=== PATIENT | female | born 1955 | race Caucasian/White ===

== ENCOUNTER → 2016-12-16 | Outpatient (CLI) | payer OTHER ==
--- NOTE | 2016-12-17 08:13 | WWHP ---
DATE OF SERVICE: 12/16/2016 CHIEF COMPLAINT The patient is here for her routine gynecologic exam and mammogram. HPI This is a 61-year-old G4, P3-0-1-3 with an LMP of 1987 who is status post RYDER BSO for benign reasons. The patient is without gynecologic complaints. PAST MEDICAL HISTORY Chronic hypertension, arthritis, osteoporosis and restless leg syndrome. The osteoporosis is managed by Dr. Caldwell. MEDICATIONS 1. Lisinopril 5 mg daily. 2. Trazodone 100 mg at bedtime. 3. Celebrex 1 daily. 4. Gabapentin 500 mg at bedtime. 5. Calcium with magnesium 1 daily. 6. Famotidine 40 mg daily. 7. Pantoprazole 20 mg daily. 8. Meclizine 25 mg b.i.d. 9. Travatan drops 1 drop nightly. 10. Restasis b.i.d. 11. Cymbalta generic 60 mg once daily and 30 mg once daily. ALLERGIES Allergies to PERCODAN. PAST SURGICAL HISTORY: Tonsillectomy, appendectomy, RYDER in 1987 and BSO in 1988, multiple laparoscopies and laparotomies for ovarian cystectomies in the past, colonoscopy with upper endoscopy in 2012. She also had another colonoscopy in 2014, a laparoscopic hiatal hernia surgery 2012, shoulder surgery 2015. PAST AUDIOMETRIST HISTORY: She is status post RYDER and later BSO for endometriosis. She has no history of STDs. SOCIAL HISTORY: She quit smoking in the and has 0 to 2 alcoholic drinks per week. She denies drug use. She is and is now engaged to be in 02/03. 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 FAMILY HISTORY Family history is unchanged from the 2016 H&P. REVIEW OF SYSTEMS: She has gained about 14 pounds over the last year. She denies respiratory, cardiac or GI problems. PHYSICAL EXAM: Blood pressure 138/87. Height 5 feet 0 inches. Weight 140 pounds. Temperature 97.5. Pulse 85. This is a well-developed, well-nourished white female who is alert and oriented x3 in no acute distress. HEENT is within normal limits. NECK: Supple without mass or thyromegaly. CHEST AND LUNGS: Clear to auscultation. HEART: Regular rate and rhythm. Breasts are without mass or discharge. Axillary exam is negative for adenopathy. BACK: Negative for CVA tenderness. ABDOMEN: Soft, nontender without palpable masses. PELVIC EXAM: External genitalia reveals mild to moderate atrophy without lesions. Vagina reveals mild to moderate atrophy without lesions. There is no evidence of prolapse. The bladder is well supported. Bimanual exam is negative for mass or tenderness. Rectovaginal exam is negative for mass or tenderness and is negative for occult blood. EXTREMITIES: Nontender. IMPRESSION: A 61-year-old menopausal female, status post RYDER and BSO for benign reasons with normal gynecologic exam. PLAN; 1. Pap smears have been discontinued. 2. Self-breast examination was discussed. 3. Mammogram will be done today. 4. Osteoporosis management was discussed. She will continue to follow up with Dr. Caldwell for bone density testing and treatment as she has done in the past. 5. She will look into colonoscopy since she believes she is due for this in the next year or so. 6. She will return in one year. LAVINIA
--- NOTE | 2016-12-17 13:06 | MM ---
Reason for exam: screening (asymptomatic). Last mammogram was performed 1 year and 3 months ago. History: Patient is postmenopausal. Family history of breast cancer in grandmother at age 60. Took estrogen for 4 years. Physical Findings: A clinical breast exam by your physician is recommended on an annual basis and results should be correlated with mammographic findings. MG Screening Mammo w CAD Bilateral CC and MLO view(s) were taken. Prior study comparison: September 26, 2015, bilateral MG screening mammo w CAD. August 01, 2014, bilateral MG screening mammo w CAD. There are scattered fibroglandular densities. There is no discrete abnormality. ASSESSMENT: Negative, BI-RAD 1 RECOMMENDATION: Routine screening mammogram of both breasts in 1 year.
== END | disposition home or self-care (01) ==
LOC: WWCWWP 10:38
PROVIDERS: ATTEND Obstetrics & Gynecology
DX: Z12.31 Encounter for screening mammogram for malignant neoplasm of breast (principal)

== ENCOUNTER → 2017-09-15 | Outpatient (CLI) | payer OTHER ==
[2017-09-15 16:13] VITALS: PULSE 83; TEMP 97.6; BMI 26.9
--- NOTE | 2017-09-15 17:17 | P.PN ---
Progress Note - Text Progress Note Date: 09/15/17 Chief complaint: whitish bulging at the vaginal opening during the past month. HPI: this is a 62-year-old with an LMP of 1987. She status post RYDER BSO for benign reasons in 1988. About 1 month ago she started noticing a slight bulging at the vaginal opening. She sees whitish tissue and is somewhere between Pea size and grape size. This is noticed near the clitoris and is slightly uncomfortable. She has a sensation like something is falling out. This is only intermittent and not continuous. At times she has had slight left abdominal discomfort when she notices the bulge. She denies dysuria but sometimes has to get to the bathroom right away when she feels the urge to go. She typically does have a good urinary stream but at times notices that she does not fully empty. SH: she was previously and remarried in January 2017. 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 She quit smoking in the and socially drinks alcohol. Review of systems: she denies fever, respiratory, cardiac, or G.I. problems. Bowel movements are normal. : as above. PE: blood pressure 164/97, height 5'0", weight 138 pounds, tension 97.6, pulse 83. This is a well-developed well-nourished white female who is alert and oriented times 3 in no acute distress. PELVIC EXAM: Normal external genitalia with moderate atrophy. There are no external genitalia lesions. There is minimal urethral prolapse with the urethral opening being slightly red comparing to the surrounding mucosa. This appears very benign. The vaginal mucosa around the urethral opening slightly pale with moderate atrophy. At rest there is no significant prolapse. With Valsalva there is a grade 1 to 2 cystocele. The patient's , Herb, is here with her and has also seen the pale bulging areas that brought them in today. He was able to point out small areas that they were calling the bulging areas. He states they are not as large as what he saw at home. He is pointing out small areas adjacent to the urethral opening consistent with a small cystocele with overlying pale atrophic vaginal mucosa. There is minimal evidence of a rectocele and a small enterocele. The vaginal cuff seems well supported. Bimanual exam is negative for master tenderness except for minimal rectal tenderness when pushing along the posterior side of the vagina. IMPRESSION: 1. 62-year-old menopausal female with a mildly symptomatic grade 1 to 2 cystocele. The bulge she is describing may also represent a small enterocele. 2. There is no evidence of any vaginal or vulvar neoplasia. PLAN: 1. I have reassured the patient and her that the findings are benign. This type of bulging, or pelvic prolapse, is not life-threatening. 2. I have recommended that she avoid repetitive heavy lifting. I have also recommended that she tried to not let her bladder or rectum get overfilled. I have recommended that she try to empty the bladder as thoroughly as possible by giving herself time and by relaxing when she voids. 3. Negative Valsalva exercises were explained and she can try these when she notices some dropping or falling out sensations. 4. She was instructed to make a follow-up appointment if symptoms are worsening or the bulge seems to be getting larger. 5. She will return in 3 months or PRN. Total time spent with the patient 30 minutes.
== END ==
LOC: WWCWWP 15:46
PROVIDERS: ATTEND Obstetrics & Gynecology
DX: Z53.9 Procedure and treatment not carried out, unspecified reason (principal)

== ENCOUNTER 2018-01-13 10:54 | Inpatient (IN) | payer OTHER ==
--- NOTE | 2018-01-13 11:24 | ED ---
General Adult HPI - General Chief complaint: Neuro Symptoms/Deficit Stated complaint: stroke symptoms Time Seen by Provider: 01/13/18 11:13 Source: patient, family, RN notes reviewed Mode of arrival: ambulatory Limitations: no limitations - History of Present Illness Initial comments: Patient is a pleasant 62-year-old female presenting to the emergency department with concern for stroke. 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 Onset was around 9 AM. Patient was awake much earlier without any difficulties. Patient is present and helps provide history. He did go to the doctor's office with her and was advised to come here. Patient also admits to having a headache that started sometime around 9 AM. Headache gradually increased and is now up to 7/10. Patient does have a family history of aneurysm. Patient did have slurred speech which is now near resolved her family and . Patient reportedly did have left-sided facial droop that agrees is now resolved. Patient states her left arm and leg did feel somewhat heavy and are improved however not quite 100% normal at this time. No history of similar symptoms previously. - Related Data Home Medications Medication Instructions Recorded Confirmed Celecoxib [CeleBREX] 200 mg PO BID 08/11/14 01/13/18 traZODone HCL [Desyrel] 100 mg PO HS 08/11/14 01/13/18 Gabapentin 600 mg PO QID 02/25/16 01/13/18 Travoprost [Travatan Z 0.004%] 1 drop LEFT EYE HS 02/25/16 01/13/18 cycloSPORINE 0.05% OPHTH SOLN 1 drop BOTH EYES BID 02/25/16 01/13/18 [Restasis 0.05% Ophth Soln] Meclizine [Antivert] 25 mg PO TID 09/15/17 01/13/18 Pantoprazole Sodium 20 mg PO DAILY 09/15/17 01/13/18 Cholecalciferol (Vitamin D3) 2,000 unit PO DAILY 01/13/18 01/13/18 [Vitamin D3] DULoxetine HCL [Cymbalta] 30 mg PO DAILY 01/13/18 01/13/18 DULoxetine HCL [Cymbalta] 60 mg PO DAILY 01/13/18 01/13/18 Famotidine [Pepcid] 40 mg PO DAILY 01/13/18 01/13/18 Ipratropium Onley 0.06%Nasal 1 spray EA NOSTRIL DAILY 01/13/18 01/13/18 [Atrovent Nasal 0.06%] Lisinopril [Zestril] 10 mg PO DAILY 01/13/18 01/13/18 Magnesium Oxide [Darby] 500 mg PO DAILY 01/13/18 01/13/18 Allergies Allergy/AdvReac Type Severity Reaction Status Date / Time adhesive tape Allergy peels skin Verified 01/13/18 11:59 off, bruises aspirin [From Percodan] Allergy Dyspnea Verified 01/13/18 11:59 oxycodone HCl [From Percodan] Allergy Dyspnea Verified 01/13/18 11:59 oxycodone terephthalate Allergy Dyspnea Verified 01/13/18 11:59 [From Percodan] Review of Systems ROS Statement: Those systems with pertinent positive or pertinent negative responses have been documented in the HPI. ROS Other: All systems not noted in ROS Statement are negative. Constitutional: Denies: fever Eyes: Denies: eye pain ENT: Denies: ear pain Respiratory: Denies: cough Cardiovascular: Reports: chest pain (Patient did have some chest discomfort earlier) Endocrine: Denies: fatigue Gastrointestinal: Denies: abdominal pain Genitourinary: Denies: dysuria Musculoskeletal: Denies: back pain Skin: Denies: rash Neurological: Reports: headache, weakness, confusion Past Medical History Additional Past Medical History / Comment(s): Vertigo, Migraines History of Any Multi-Drug Resistant Organisms: None Reported Past Surgical History: No Surgical Hx Reported Past Psychological History: Anxiety Smoking Status: Former smoker Past Alcohol Use History: Occasional Past Drug Use History: None Reported General Exam Limitations: no limitations General appearance: alert, in no apparent distress Head exam: Present: atraumatic Eye exam: Present: normal appearance, PERRL, EOMI. Absent: nystagmus ENT exam: Present: normal oropharynx Neck exam: Present: normal inspection Respiratory exam: Present: normal lung sounds bilaterally Cardiovascular Exam: Present: regular rate, normal rhythm GI/Abdominal exam: Present: soft. Absent: tenderness Extremities exam: Present: normal inspection Neurological exam: Present: alert, oriented X3, CN II-XII intact Expanded Neurological exam: Present: protecting the airway Patient oriented to: Present: person, place, time Speech: Present: fluid speech Cranial nerves: EOM's Intact: Normal, Facial Sensation: Normal Cerebellar function: Finger to Nose: Normal Sensory exam: Upper Extremity Light Touch: Normal, Lower Extremity Light Touch: Normal Motor strength exam: RUE: 5, LUE: 5, RLE: 5, LLE: 4 Eye Response: (4) open spontaneously Motor Response: (6) obeys commands Verbal Response: (5) oriented Psychiatric exam: Present: normal affect, normal mood Skin exam: Present: normal color Course Vital Signs 01/13/18 01/13/18 01/13/18 11:02 11:15 11:30 Temperature 97.1 F L Pulse Rate 60 79 79 Respiratory 18 16 18 Rate Blood Pressure 162/105 145/75 158/89 O2 Sat by Pulse 95 100 99 Oximetry 01/13/18 01/13/18 01/13/18 11:45 12:00 12:15 Temperature Pulse Rate 84 79 71 Respiratory 18 18 16 Rate Blood Pressure 159/89 151/102 160/104 O2 Sat by Pulse 100 100 99 Oximetry 01/13/18 12:45 Temperature 98.1 F Pulse Rate 68 Respiratory 16 Rate Blood Pressure 151/103 O2 Sat by Pulse 99 Oximetry EKG Findings - EKG Comments: EKG Findings:: Normal sinus rhythm 81. AR 144. QRS 70. QT 376. QTc 436. Normal axis. Normal QRS. No acute ST change. Medical Decision Making - Medical Decision Making Call was earlier received from Dr. Little's with neurology who agreed patient was not a candidate for TPA. He did review the films. Case was discussed in detail with Dr. Gibbs, who will admit for Dr. Caldwell. Patient and family were updated. - Lab Data Result diagrams: 01/13/18 11:07 01/13/18 11:07 Lab Results 01/13/18 01/13/18 01/13/18 Range/Units 11:07 11:07 11:07 WBC 11.5 H (3.8-10.6) k/uL RBC 4.19 (3.80-5.40) m/uL Hgb 13.8 (11.4-16.0) gm/dL Hct 43.4 (34.0-46.0) % MCV 103.5 H (80.0-100.0) fL MCH 33.0 (25.0-35.0) pg MCHC 31.9 (31.0-37.0) g/dL RDW 13.3 (11.5-15.5) % Plt Count 341 (150-450) k/uL Neutrophils % (Manual) 82 % Lymphocytes % (Manual) 12 % Monocytes % (Manual) 5 % Eosinophils % (Manual) 1 % Neutrophils # (Manual) 9.43 H (1.3-7.7) k/uL Lymphocytes # (Manual) 1.38 (1.0-4.8) k/uL Monocytes # (Manual) 0.58 (0-1.0) k/uL Eosinophils # (Manual) 0.12 (0-0.7) k/uL Nucleated RBCs 0 (0-0) /100 WBC Manual Slide Review Performed Macrocytosis Slight PT (9.0-12.0) sec INR (<1.2) APTT (22.0-30.0) sec Sodium 139 (137-145) mmol/L Potassium 4.5 (3.5-5.1) mmol/L Chloride 105 (98-107) mmol/L Carbon Dioxide 25 (22-30) mmol/L Anion Gap 9 mmol/L BUN 14 (7-17) mg/dL Creatinine 0.68 (0.52-1.04) mg/dL Est GFR (CKD-EPI)AfAm >90 (>60 ml/min/1.73 sqM) Est GFR (CKD-EPI)NonAf >90 (>60 ml/min/1.73 sqM) Glucose 91 (74-99) mg/dL Calcium 10.3 H (8.4-10.2) mg/dL Total Bilirubin 0.7 (0.2-1.3) mg/dL AST 33 (14-36) U/L ALT 24 (9-52) U/L Alkaline Phosphatase 80 (38-126) U/L Total Creatine Kinase 54 (30-135) U/L CK-MB (CK-2) 1.0 (0.0-2.4) ng/mL CK-MB (CK-2) Rel Index 1.9 Troponin I <0.012 (0.000-0.034) ng/mL Total Protein 7.0 (6.3-8.2) g/dL Albumin 4.3 (3.5-5.0) g/dL 09/26/18 Range/Units 11:07 WBC (3.8-10.6) k/uL RBC (3.80-5.40) m/uL Hgb (11.4-16.0) gm/dL Hct (34.0-46.0) % MCV (80.0-100.0) fL MCH (25.0-35.0) pg MCHC (31.0-37.0) g/dL RDW (11.5-15.5) % Plt Count (150-450) k/uL Neutrophils % (Manual) % Lymphocytes % (Manual) % Monocytes % (Manual) % Eosinophils % (Manual) % Neutrophils # (Manual) (1.3-7.7) k/uL Lymphocytes # (Manual) (1.0-4.8) k/uL Monocytes # (Manual) (0-1.0) k/uL Eosinophils # (Manual) (0-0.7) k/uL Nucleated RBCs (0-0) /100 WBC Manual Slide Review Macrocytosis PT 9.4 (9.0-12.0) sec INR 0.9 (<1.2) APTT 24.7 (22.0-30.0) sec Sodium (137-145) mmol/L Potassium (3.5-5.1) mmol/L Chloride (98-107) mmol/L Carbon Dioxide (22-30) mmol/L Anion Gap mmol/L BUN (7-17) mg/dL Creatinine (0.52-1.04) mg/dL Est GFR (CKD-EPI)AfAm (>60 ml/min/1.73 sqM) Est GFR (CKD-EPI)NonAf (>60 ml/min/1.73 sqM) Glucose (74-99) mg/dL Calcium (8.4-10.2) mg/dL Total Bilirubin (0.2-1.3) mg/dL AST (14-36) U/L ALT (9-52) U/L Alkaline Phosphatase (38-126) U/L Total Creatine Kinase (30-135) U/L CK-MB (CK-2) (0.0-2.4) ng/mL CK-MB (CK-2) Rel Index Troponin I (0.000-0.034) ng/mL Total Protein (6.3-8.2) g/dL Albumin (3.5-5.0) g/dL - Radiology Data Radiology results: report reviewed (CT angios shows no evidence of aortic dissection. Some limitation right common carotid artery. 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 Congenitally diminutive left vertebral artery. Computed tomography scan the brain shows no acute process.), image reviewed (Chest x-ray does show mild tortuosity of the thoracic aorta.) Disposition Clinical Impression: Cerebrovascular accident Disposition: ADMITTED IP TO THIS HOSP Is patient prescribed a controlled substance at d/c from ED?: No Referrals: Pili Caldwell DO [Primary Care Provider] - 1-2 days Decision Time: 12:58
--- NOTE | 2018-01-13 11:55 | CT ---
EXAMINATION TYPE: CT brain wo con for TPA DATE OF EXAM: 01/13/2018 COMPARISON: 04/08/2010 HISTORY: 62-year-old female, weakness, Neuro deficits TECHNIQUE: Examination was done in axial plane without intravenous contrast. Coronal and sagittal r econstructions performed. CT DLP: 1005.12 mGycm Automated exposure control for dose reduction was used. FINDINGS: There is no evidence of acute intracranial hemorrhage, acute ischemic changes, mass, mass-effect, or extra-axial fluid collection. There is no effacement of cerebral sulci or basal subarachnoid cister ns. There is no hydrocephalus. There is no midline shift. Bueno-white matter distinction is preserv ed. Mild bifrontal cerebral atrophy. Partially empty sella. Stable focal scalloping of the inner table of the right lateral calvarium overlying the superior righ t temporal lobe, unchanged from 2009 compatible with a benign etiology, possible arachnoid granulatio n. Trace mucosal thickening ethmoid air cells. IMPRESSION: No acute intracranial abnormality seen. If symptoms persist, follow-up CT or MRI.
[2018-01-13 12:04] LABS: HCT 43.4 % (34.0-46.0); HGB 13.8 gm/dL (11.4-16.0); MCHC 31.9 g/dL (31.0-37.0); MCV 103.5 fL (80.0-100.0); Macrocytosis Slight; Mean Platelet Volume 6.9; Platelet Count 341 k/uL (150-450); RBC 4.19 m/uL (3.80-5.40); RDW 13.3 % (11.5-15.5); WBC 11.5 k/uL (3.8-10.6)
[2018-01-13 12:11] LABS: ALT 24 U/L (9-52); AST 33 U/L (14-36); Albumin 4.3 g/dL (3.5-5.0); Alkaline Phosphatase 80 U/L (38-126); Anion Gap 9 mmol/L; Blood Urea Nitrogen 14 mg/dL (7-17); Calcium 10.3 mg/dL (8.4-10.2); Carbon Dioxide 25 mmol/L (22-30); Chloride 105 mmol/L (98-107); Glucose 91 mg/dL (74-99); Potassium 4.5 mmol/L (3.5-5.1); Sodium 139 mmol/L (137-145); Total Bilirubin 0.7 mg/dL (0.2-1.3)
[2018-01-13 12:13] LABS: INR 0.9 (<1.2); Partial Thromboplastin Time 24.7 sec (22.0-30.0); Prothrombin Time 9.4 sec (9.0-12.0)
[2018-01-13 12:17] LABS: Eosinophils # (M) 0.12 k/uL (0-0.7); Lymphocytes # (M) 1.38 k/uL (1.0-4.8); Monocytes # (M) 0.58 k/uL (0-1.0); Neutrophils # (M) 9.43 k/uL (1.3-7.7); Neutrophils % (M) 82 %; Nucleated Red Blood Cells 0 /100 WBC (0-0); Total Cells Counted 100
[2018-01-13 12:25] LABS: Creatine Kinase 54 U/L (30-135)
--- NOTE | 2018-01-13 12:35 | CT ---
EXAMINATION TYPE: CT angio head neck DATE OF EXAM: 01/13/2018 COMPARISON: Correlation MRA 04/04/2017 HISTORY: 62-year-old female neurologic deficits, Left sided weakness and heaviness in bilateral extre mities TECHNIQUE: Contiguous axial scanning of the head and neck performed with IV Contrast, patient injecte d with 100 ml mL of Isovue 370. Coronal/sagittal MIP performed. 3-D reconstructions generated on a de dicated independent workstation. Scanning was extended down through the mid chest. CT DLP: 538.91 mGycm Automated exposure control for dose reduction was used. FINDINGS: Chest: Postsurgical changes at the GE junction. Heart normal size with trace anterior pericardial fluid. Aorta normal caliber without evidence for aortic dissection. There is aberrant direct takeoff of the left vertebral artery directly from the arch. The left verteb ral artery is diminutive and becomes hypoplastic along the V4 segment. Prominent hazy dependent densities in the lungs suggest areas of atelectasis. NECK: The right common carotid artery is tortuous and is combination of motion and prominent beam hardening artifact limiting assessment of the proximal right common carotid artery. The right carotid bifurcation is patent. The upper right ICA is tortuous but the right internal carotid artery remains patent. The proximal left common carotid artery is tortuous. The upper left internal carotid artery is also t ortuous. The left carotid system remains patent. HEAD: Hypoplastic V4 segment left vertebral artery. 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 There is a 3 mm aneurysm at the tip of the basilar artery, and section coronal image 33. In addition, there is early bifurcation of the M1 segment right middle cerebral artery. No arterial o cclusion are otherwise any significant stenosis is identified. Dural venous sinuses are patent. IMPRESSION: CHEST: 1. NO EVIDENCE FOR AORTIC DISSECTION. 2. 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 THIS VESSEL BECOMES HYPOPLASTIC ALONG THE INTRACRANIAL V4 SEGMENT. NECK: 1. 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 NO SIGNIFICANT STENOSIS. 2. COMBINATION OF MOTION AND BEAM HARDENING ARTIFACT LIMITING ASSESSMENT OF THE PROXIMAL RIGHT COMMON CAROTID ARTERY. HEAD: 1. 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 2. 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 3. EARLY BIFURCATION M1 SEGMENT RIGHT MCA. NO ARTERIAL OCCLUSION OR OTHERWISE ANY SIGNIFICANT STENOSI S SEEN.
[2018-01-13 12:37] LABS: Troponin I <0.012 ng/mL (0.000-0.034)
--- NOTE | 2018-01-13 12:39 | XR ---
EXAMINATION TYPE: XR chest 2V DATE OF EXAM: 01/13/2018 COMPARISON: 11/07/2012 HISTORY: 62-year-old female altered mental status, confusion and loss of balance TECHNIQUE: Frontal and lateral views FINDINGS: Heart normal size. Tortuous thoracic aorta, increased from 2012. No consolidation or pleural effusion . IMPRESSION: Incidentally, mild tortuosity of the thoracic aorta has increased from 2012. No acute cardiopulmonary process.
[2018-01-13] MEDS ORDERED: MORPHINE SULFATE 2 MG/ML SYRINGE IVP STA (12:53)
[2018-01-13] MEDS ORDERED: ASPIRIN 325 MG TAB PO STA (12:58)
--- NOTE | 2018-01-13 15:48 | P.HPIM ---
History of Present Illness H&P Date: 01/13/18 Chief Complaint: Confusion and headache This is a 62-year-old female patient of Dr. Caldwell. Patient presents to the emergency room with complaints of confusion and headache that started around 9: 00 morning. Patient was also noted to have facial droop and slurred speech by her . Those symptoms have resolved. Patient does still complain of headache. Patient has known past medical history of eye disorder, GERD, essential hypertension, osteoporosis, rheumatoid arthritis, migraines, vertigo and anxiety. Head CT completed showing no acute intracranial abnormality. Chest x-ray completed showing incidentally, mild tortuosity of the thoracic aorta has increased from 2013. No acute cardiopulmonary process. CT angiogram of the head and neck completed showing postsurgical changes EKG E junction. Heart normal size with trace anterior pericardial fluid. Aorta normal caliber without evidence for aortic dissection. There is apparent direct takeoff of the left vertebral artery directly from the arch. The left vertebral artery is diminutive and becomes hypoplastic along the V4 segment. Prominent hazy dependent densities in the lungs suggestive of atelectasis. troponins negative. 2-D echo has been ordered. Neurology services consulted. WBC 11.5. Patient denies any signs of infection at this time urinary analysis has been ordered. At this time patient denies chest pain or shortness of breath. Does complain of left-sided headache. Patient denies nausea vomiting or diarrhea. Patient denies any urinary burning or frequency. Patient does not have any facial droop or slurred speech at this time. Equal strength throughout all extremities. Patient alert and oriented 3 Review of Systems please refer to HPI otherwise unremarkable Past Medical History Past Medical History: Eye Disorder, GERD/Reflux, Hypertension, Osteoarthritis ( OA), Rheumatoid Arthritis (RA) Additional Past Medical History / Comment(s): Vertigo, migraines, arthritis/ rheumatoid arthritis multiple joints, osteoporosis, L eye glaucoma, History of Any Multi-Drug Resistant Organisms: None Reported Past Surgical History: Appendectomy, Hernia Repair, Hysterectomy, Orthopedic Surgery Additional Past Surgical History / Comment(s): L rotator cuff repair, hiatal hernia repair, multiple laparoscopic surgeries for ovarian cysts, colonoscopy. Past Anesthesia/Blood Transfusion Reactions: No Reported Reaction Smoking Status: Former smoker - Past Family History Mother Family Medical History: Cancer Additional Family Medical History / Comment(s): CML. Mother at the age of 80yrs. Brother(s) Family Medical History: Cancer Additional Family Medical History / Comment(s): Brother at the age of 57yrs from prostate cancer that metastasized. Medications and Allergies Home Medications Medication Instructions Recorded Confirmed Type Celecoxib [CeleBREX] 200 mg PO BID 08/11/14 01/13/18 History traZODone HCL [Desyrel] 100 mg PO HS 08/11/14 01/13/18 History Gabapentin 600 mg PO QID 02/25/16 01/13/18 History Travoprost [Travatan Z 0.004%] 1 drop LEFT EYE HS 02/25/16 01/13/18 History cycloSPORINE 0.05% OPHTH SOLN 1 drop BOTH EYES BID 02/25/16 01/13/18 History [Restasis 0.05% Ophth Soln] Meclizine [Antivert] 25 mg PO TID 09/15/17 01/13/18 History Pantoprazole Sodium 20 mg PO DAILY 09/15/17 01/13/18 History Cholecalciferol (Vitamin D3) 2,000 unit PO DAILY 01/13/18 01/13/18 History [Vitamin D3] DULoxetine HCL [Cymbalta] 30 mg PO DAILY 01/13/18 01/13/18 History DULoxetine HCL [Cymbalta] 60 mg PO DAILY 01/13/18 01/13/18 History Famotidine [Pepcid] 40 mg PO DAILY 01/13/18 01/13/18 History Ipratropium [place] 0.06%Nasal 1 spray EA NOSTRIL DAILY 01/13/18 01/13/18 History [Atrovent Nasal 0.06%] Lisinopril [Zestril] 10 mg PO DAILY 01/13/18 01/13/18 History Magnesium Oxide [Darby] 500 mg PO DAILY 01/13/18 01/13/18 History Allergies Allergy/AdvReac Type Severity Reaction Status Date / Time adhesive tape Allergy peels skin Verified 01/13/18 11:59 off, bruises aspirin [From Percodan] Allergy Dyspnea Verified 01/13/18 11:59 oxycodone HCl [From Percodan] Allergy Dyspnea Verified 01/13/18 11:59 oxycodone terephthalate Allergy Dyspnea Verified 01/13/18 11:59 [From Percodan] Physical Exam Vitals: Vital Signs Temp Pulse Pulse Resp BP BP Pulse Ox 01/13/18 14:42 74 01/13/18 14:37 97.8 F 74 130/74 01/13/18 14:14 97.8 F 70 16 144/80 98 18 14:00 144/80 01/13/18 12:45 98.1 F 68 16 151/103 99 01/13/18 12:15 71 16 160/104 99 01/13/18 12:00 79 18 151/102 100 01/13/18 11:45 84 18 159/89 100 01/13/18 11:30 79 18 158/89 99 01/13/18 11:15 79 16 145/75 100 01/13/18 11:02 97.1 F L 60 18 162/105 95 Intake and Output 01/13/18 01/13/18 01/13/18 06:59 14:59 22:59 Other: Weight 60.5 kg Results CBC & Chem 7: 01/13/18 11:07 01/13/18 11:07 Labs: Abnormal Lab Results - Last 24 Hours (Table) 01/13/18 01/13/18 Range/Units 11:07 11:07 WBC 11.5 H (3.8-10.6) k/uL MCV 103.5 H (80.0-100.0) fL Neutrophils # (Manual) 9.43 H (1.3-7.7) k/uL Calcium 10.3 H (8.4-10.2) mg/dL Thrombosis Risk Factor Assmnt - Choose All That Apply Any of the Below Risk Factors Present?: Yes Other Risk Factors: Yes Other congenital or acquired thrombophilia - If yes, enter type in comment: No Each Risk Factor Represents 5 Points: Stroke (< 1 month) Thrombosis Risk Factor Assessment Total Risk Factor Score: 5 Thrombosis Risk Factor Assessment Level: High Risk Assessment and Plan Assessment: 1. Confusion with left-sided headache. Patient states she had episode of slurred speech facial droop noted per . CT of head completed showing no acute intracranial abnormality. CTA completed showing postsurgical changes at the GE junction. Heart normal size with trace anterior pericardial fluid. Aorta normal caliber without evidence for aortic dissection. There is apparent direct takeoff of the left vertebral artery directly from the arch. The left vertebral arteries anemia and becomes hypoplastic along the V4 segment. Prominent hazy dependent densities in lung suggesting areas of atelectasis. Neurology services have been consulted 2-D echo has been ordered. Patient currently on aspirin 325 mg 2. History of eye disorder. Home eyedrops resumed 3. History of migraines and vertigo 4. History of hypertension. Lisinopril ordered 5. History of GERD. Continue home medication 6. History of osteoarthritis 7. History of rheumatoid arthritis 8. History of anxiety. Time with Patient: Greater than 30 (Greater than 60% of the total time spent in counseling and coordination of care. I performed an examination of the patient and discussed their management with the Nurse Practitioner. I have reviewed the Nurse Practitioner's notes and agree with the documented findings and plan of care)
[2018-01-13 16:40] LABS: Appearance,Urine Clear (Clear); Bilirubin,Urine Negative (Negative); Blood,Urine Negative (Negative); Color,Urine Yellow; Glucose,Urine (UA) Negative (Negative); Ketones,Urine Negative (Negative); Leukocyte Esterase,Urine Negative (Negative); Nitrite,Urine Negative (Negative); Protein,Urine Negative (Negative); Specific Gravity,Urine 1.036 (1.001-1.035); Urobilinogen,Urine <2.0 mg/dL (<2.0)
[2018-01-13] MEDS: SODIUM CHLORIDE 0.9% 1,000 ML IV SCH (16:49)
[2018-01-13] MEDS: GABAPENTIN 300 MG CAP PO SCH ×2 (17:07→21:15)
[2018-01-13] MEDS ORDERED: ACETAMINOPHEN TAB 325 MG TAB PO PRN (17:10)
--- NOTE | 2018-01-13 20:39 | CONS ---
CONSULTATION DATE OF CONSULTATION: 01/13/2018. CHIEF COMPLAINT: Transient ischemic attack. HISTORY OF PRESENT ILLNESS: Mrs. Caldera is a pleasant 62-year-old female, who is being evaluated by the neurology service per the request of Dr. Gibbs for a transient ischemic attack. The patient was brought into [facility] emergency room after her noticed that she was slurring her speech and also noticed a facial drooping on the left side. The patient had been complaining of a headache this morning. In the emergency room, her blood pressure was found to be significantly elevated at 162/105. A stat CT scan of the brain was done, which was normal. A CT angiogram of the neck was done which showed no significant stenosis. 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 Her cardiac enzymes and urinalysis were normal. Her INR was normal. Her comprehensive metabolic profile showed no significant abnormalities. Her CBC showed mild leukocytosis at 11.5. The patient was admitted and started on IV hydration. She is not on any anti-platelet therapy at home. She was started on aspirin 325 mg daily on this admission. At the time of my evaluation, the patient is sitting up in her bed and appears to be in no acute distress. Her slurred speech and facial drooping have completely resolved. PAST MEDICAL HISTORY: Gastroesophageal reflux disease, hypertension, rheumatoid arthritis, migraine headaches, glaucoma, history of appendectomy, hernia repair, orthopedic surgeries, hysterectomy. SOCIAL HISTORY: The patient is a former smoker. She denies any alcohol or drug use. FAMILY HISTORY: Positive for lymphoma and intracranial aneurysm. HOME MEDICATIONS: Reviewed in the chart. ALLERGIES: ADHESIVE TAPE, PERCODAN/OXYCODONE. REVIEW OF SYSTEMS: CONSTITUTIONAL: Positive for fatigue. EYES: As mentioned above. ENT: Positive for occasional vertigo. CARDIOVASCULAR: As mentioned above. RESPIRATORY: Negative. NEUROLOGICAL: As mentioned above. GASTROINTESTINAL: Positive for occasional heartburn. GENITOURINARY: Negative. PSYCHIATRIC: Negative. MUSCULOSKELETAL: Positive for occasional joint pain. DERMATOLOGICAL: Negative. ENDOCRINE: Negative. PHYSICAL EXAM: Vital signs show a temperature of 97.5, pulse 76, respirations 17, blood pressure 136/64. GENERAL APPEARANCE: The patient is a well-developed female who appears to be in no acute distress. HEENT: Normocephalic, atraumatic, no facial asymmetry is seen. NECK: Supple with no masses felt. CARDIOVASCULAR: Regular rate and rhythm. ABDOMEN: Nontender, nondistended. Extremities showed no edema or clubbing. Neurological exam: The patient is awake and oriented x3. Speech and language are normal. Strength is full in all 4 extremities. Sensory exam was normal to light touch in all 4 extremities. No dysdiadochokinesia is noticed. No tremors or seizure-like activity is seen. No facial asymmetry is noticed on cranial nerve testing. IMPRESSION: 1. Transient ischemic attack. 2. Left facial weakness, resolved. 3. Dysarthria, resolved. 4. Intracranial aneurysm. 5. Hypertension. RECOMMENDATION: The patient does appear to have suffered a transient ischemic attack with a transient episode of left facial drooping and dysarthria. Her neurological symptoms have resolved. Her CT angiogram of the neck showed no significant stenosis. She has been started on aspirin 325 mg daily. I will order a fasting lipid panel, serum homocystine level. As for her basilar tip aneurysm, I did have a lengthy discussion with her regarding this finding. She will need to follow up with Neurosurgery in the outpatient setting. I did explain to the patient that a repeat CT angiogram of the brain should be done in 4-6 months to check for changes in the size of the aneurysm. The importance of blood pressure control was discussed with the patient. Continue the rest of your current workup and management. I will continue to follow with you. Further recommendations to follow. Thank you for allowing me to participate in the care of your patient. If you have any questions, please feel free to contact me. DEMARCUS / IJN: [id number] /
[2018-01-13] MEDS: LATANOPROST 0.005% OPHTH DROPS 2.5 ML BTL LEFT EYE SCH (21:13)
[2018-01-13] MEDS: traZODone HCL 100 MG TAB PO SCH (21:14)
[2018-01-13] MEDS: cycloSPORINE 0.05% OPHTH 0.4 ML DROPERETTE BOTH EYES SCH (21:16)
[2018-01-14] MEDS: SODIUM CHLORIDE 0.9% 1,000 ML IV SCH ×3 (03:23→16:12)
[2018-01-14] MEDS: traMADol 50 MG TAB PO PRN ×3 (04:03→20:46)
[2018-01-14] MEDS: PANTOPRAZOLE 40 MG TABLET PO SCH (06:10)
[2018-01-14 07:07] LABS: HGB 12.2 gm/dL (11.4-16.0); MCH 32.7 pg (25.0-35.0); MCHC 31.3 g/dL (31.0-37.0); MCV 104.4 fL (80.0-100.0); Macrocytosis Slight; Mean Platelet Volume 7.2; Platelet Count 283 k/uL (150-450); RBC 3.73 m/uL (3.80-5.40); RDW 13.1 % (11.5-15.5); WBC 4.6 k/uL (3.8-10.6)
[2018-01-14 07:13] LABS: ALT 21 U/L (9-52); AST 28 U/L (14-36); Albumin 3.3 g/dL (3.5-5.0); Alkaline Phosphatase 57 U/L (38-126); Anion Gap 4 mmol/L; Blood Urea Nitrogen 14 mg/dL (7-17); Calcium 9.1 mg/dL (8.4-10.2); Carbon Dioxide 23 mmol/L (22-30); Chloride 113 mmol/L (98-107); Glucose 85 mg/dL (74-99); HDL Cholesterol 60 mg/dL (40-60); Potassium 4.5 mmol/L (3.5-5.1); Sodium 140 mmol/L (137-145); Total Bilirubin 0.4 mg/dL (0.2-1.3); Total Protein 5.7 g/dL (6.3-8.2)
[2018-01-14] MEDS: CHOLECALCIFEROL 1,000 UNIT TAB PO SCH (07:52)
[2018-01-14] MEDS: cycloSPORINE 0.05% OPHTH 0.4 ML DROPERETTE BOTH EYES SCH ×2 (07:53→20:49)
[2018-01-14] MEDS: DULoxetine HCL 30 MG CAPSULE.DR PO SCH (07:53)
[2018-01-14] MEDS: FAMOTIDINE 20 MG TAB PO SCH (07:54)
[2018-01-14] MEDS: GABAPENTIN 300 MG CAP PO SCH ×4 (07:54→20:47)
[2018-01-14] MEDS: ENOXAPARIN 40 MG/0.4 ML SYRINGE SQ SCH (07:54)
[2018-01-14] MEDS: MECLIZINE 25 MG TAB PO SCH ×3 (07:55→20:47)
[2018-01-14] MEDS: MAGNESIUM OXIDE 400 MG TAB PO SCH (07:55)
[2018-01-14] MEDS: IPRATROPIUM BROMIDE 0.06% NASAL SPRAY (15 ML) EA NOSTRIL SCH (08:04)
[2018-01-14 08:26] LABS: Basophils # (M) 0.05 k/uL (0-0.2); Eosinophils # (M) 0.05 k/uL (0-0.7); Lymphocytes # (M) 1.61 k/uL (1.0-4.8); Monocytes # (M) 0.37 k/uL (0-1.0); Myelocytes # (M) 0.05 k/uL (0); Myelocytes % 1 %; Neutrophils # (M) 2.62 k/uL (1.3-7.7); Neutrophils % (M) 57 %; Nucleated Red Blood Cells 0 /100 WBC (0-0); Total Cells Counted 200
[2018-01-14 08:27] LABS: Poikilocytosis (M) Present
[2018-01-14 08:48] LABS: Cholesterol 189 mg/dL (<200)
[2018-01-14 08:49] LABS: Triglycerides 160 mg/dL (<150)
[2018-01-14] MEDS ORDERED: DULoxetine HCL 60 MG CAPSULE.DR PO SCH (09:00)
[2018-01-14] MEDS ORDERED: ENOXAPARIN 30 MG/0.3 ML SYRINGE SQ SCH (09:00)
[2018-01-14] MEDS ORDERED: ASPIRIN 325 MG TAB PO SCH (09:00)
[2018-01-14] MEDS ORDERED: LISINOPRIL 10 MG TAB PO SCH (09:00)
[2018-01-14 09:14] LABS: LDL Cholesterol,Calculated 97 mg/dL (0-99)
--- NOTE | 2018-01-14 10:08 | ECHOF ---
Referral Reason:cva, thrombosis MEASUREMENTS -------- HEIGHT: 152.4 cm WEIGHT: 59.9 kg BP: 144/80 RVIDd: 3.0 cm (< 3.3) IVSd: 1.3 cm (0.6 - 1.1) LVIDd: 2.8 cm (3.9 - 5.3) LVPWd: 1.3 cm (0.6 - 1.1) IVSs: 1.5 cm LVIDs: 2.1 cm LVPWs: 1.5 cm LAESV Index (A-L): 10.67 ml/m Ao Diam: 3.7 cm (2.0 - 3.7) AV Cusp: 2.2 cm (1.5 - 2.6) MV E Adrián: 0.68 m/s MV DecT: 393 ms MV A Adrián: 1.01 m/s MV E/A Ratio: 0.68 RAP: 5.00 mmHg RVSP: 11.43 mmHg FINDINGS -------- Sinus rhythm. This was a technically adequate study. The left ventricular size is normal. There is mild concentric left ventricular hypertrophy. Overa ll left ventricular systolic function is normal with, an EF between 55 - 60 %. The right ventricle is normal in size and function. Normal LA size by volume 22+/-6 ml/m2. The right atrium is normal in size. The aortic valve is trileaflet, and appears structurally normal. No aortic stenosis or regurgitation. The mitral valve leaflets are mildly thickened. There is trace to mild mitral regurgitation. Trace tricuspid regurgitation present. Right ventricular systolic pressure is normal at < 35 mmHg. There is no evidence of pulmonary hypertension. The pulmonic valve was not well visualized. The aortic root size is normal. Normal inferior vena cava with normal inspiratory collapse consistent with estimated right atrial pre ssure of 5 mmHg. There is no pericardial effusion. CONCLUSIONS -------- 1. Sinus rhythm. 2. This was a technically adequate study. 3. The left ventricular size is normal. 4. There is mild concentric left ventricular hypertrophy. 5. Overall left ventricular systolic function is normal with, an EF between 55 - 60 %. 6. Normal LA size by volume 22+/-6 ml/m2. 7. The aortic valve is trileaflet, and appears structurally normal. No aortic stenosis or regurgitati on. 8. The mitral valve leaflets are mildly thickened. 9. There is trace to mild mitral regurgitation. 10. Trace tricuspid regurgitation present. 11. Right ventricular systolic pressure is normal at < 35 mmHg. 12. There is no evidence of pulmonary hypertension. 13. The pulmonic valve was not well visualized. 14. The aortic root size is normal. 15. There is no pericardial effusion. POLYETHYLENE BAG MACHINE OPERATOR: Juno Obrien RDCS
[2018-01-14] MEDS ORDERED: traMADol 50 MG TAB PO STA (14:20)
--- NOTE | 2018-01-14 15:18 | P.PN ---
Subjective Progress Note Date: 01/14/18 This is a 62-year-old female patient of Dr. Caldwell. Patient presents to the emergency room with complaints of confusion and headache that started around 9: 00 morning. Patient was also noted to have facial droop and slurred speech by her . Those symptoms have resolved. Patient does still complain of headache. Patient has known past medical history of eye disorder, GERD, essential hypertension, osteoporosis, rheumatoid arthritis, migraines, vertigo and anxiety. Head CT completed showing no acute intracranial abnormality. Chest x-ray completed showing incidentally, mild tortuosity of the thoracic aorta has increased from 2012. No acute cardiopulmonary process. CT angiogram of the head and neck completed showing postsurgical changes EKG E junction. Heart normal size with trace anterior pericardial fluid. Aorta normal caliber without evidence for aortic dissection. There is apparent direct takeoff of the left vertebral artery directly from the arch. The left vertebral artery is diminutive and becomes hypoplastic along the V4 segment. Prominent hazy dependent densities in the lungs suggestive of atelectasis. troponins negative. 2-D echo has been ordered. Neurology services consulted. WBC 11.5. Patient denies any signs of infection at this time urinary analysis has been ordered. At this time patient denies chest pain or shortness of breath. Does complain of left-sided headache. Patient denies nausea vomiting or diarrhea. Patient denies any urinary burning or frequency. Patient does not have any facial droop or slurred speech at this time. Equal strength throughout all extremities. Patient alert and oriented 3 On 01/14/2018 patient is currently resting comfortably in bed. Patient does complain that she still having mild headache and some left-sided tingling to her upper and lower extremities. At this time patient denies chest pain or shortness of breath. Patient is alert and oriented 3. Patient denies nausea vomiting or diarrhea. Neurology services are following EEG has been ordered Objective - Vital Signs Vital signs: Vital Signs Temp 96.1 F L 01/14/18 11:00 Pulse 66 01/14/18 11:00 Resp 20 01/14/18 11:00 BP 150/92 01/14/18 11:00 Pulse Ox 95 01/14/18 11:00 Intake & Output 01/13/18 01/14/18 01/14/18 18:59 06:59 18:59 Intake Total 760 477 Balance 760 477 Weight 60.5 kg 61.1 kg Intake: Intake, IV Titration 200 Amount Sodium Chloride 0.9% 1, 200 000 ml @ 100 mls/hr IV . Q10H CHITO Rx#:[id number] Oral 560 477 Other: Voiding Method Toilet # Voids 2 2 - Exam Head normocephalic Neck supple Lungs clear to auscultation bilaterally no wheezing or crackles Heart regular rate and rhythm S1-S2, no rub or gallop Abdomen is soft nontender nondistended positive bowel sounds no hepatosplenomegaly Extremities no edema Neuro alert and orientated to 3 - Labs CBC & Chem 7: 01/14/18 05:54 01/14/18 05:54 Labs: Abnormal Lab Results - Last 24 Hours (Table) 01/13/18 01/14/18 01/14/18 Range/Units 16:25 05:54 05:54 RBC 3.73 L (3.80-5.40) m/uL MCV 104.4 H (80.0-100.0) fL Myelocytes # (Manual) 0.05 H (0) k/uL Chloride 113 H (98-107) mmol/L Total Protein 5.7 L (6.3-8.2) g/dL Albumin 3.3 L (3.5-5.0) g/dL Triglycerides 160 H (<150) mg/dL Ur Specific Babcock 1.036 H (1.001-1.035) Assessment and Plan Assessment: 1. TIA with Confusion with left-sided headache. Patient states she had episode of slurred speech facial droop noted per . CT of head completed showing no acute intracranial abnormality. CTA completed showing postsurgical changes at the GE junction. Heart normal size with trace anterior pericardial fluid. Aorta normal caliber without evidence for aortic dissection. There is apparent direct takeoff of the left vertebral artery directly from the arch. The left vertebral arteries anemia and becomes hypoplastic along the V4 segment. Prominent hazy dependent densities in lung suggesting areas of atelectasis. Neurology services have been consulted 2-D echo has been ordered. Patient currently on aspirin 325 mg. MRI of the brain has been ordered per neurology EEG has been completed 2. History of eye disorder. Home eyedrops resumed 3. History of migraines and vertigo 4. History of hypertension. Lisinopril ordered. Lisinopril has been increased to BID 5. History of GERD. Continue home medication 6. History of osteoarthritis 7. History of rheumatoid arthritis 8. History of anxiety. 9. Basilar tip Aneurysm. Per neurology patient to follow-up with neurosurgery in the outpatient setting and to have a repeat CT angiogram of the brain in 4-6 months to check for changes in size of the aneurysm. DVT prophylaxis Lovenox. GI prophylaxis Pepcid I performed an examination of the patient and discussed their management with the Nurse Practitioner. I have reviewed the Nurse Practitioner's notes and agree with the documented findings and plan of care
--- NOTE | 2018-01-14 18:09 | EEG ---
ELECTROENCEPHALOGRAM REPORT DATE OF SERVICE: 01/14/2018 REASON FOR TESTING: Transient ischemic attack. DESCRIPTION OF THE PROCEDURE: This EEG was performed using a 21-channel digital electroencephalograph, following international 10-20 system. DESCRIPTION OF THE RECORDING: From the beginning of the tracing, and with the patient's eyes closed, the background rhythm was mostly consisting of 9-10 Hz alpha frequency in the posterior occipital leads. No obvious asymmetry is seen. Photic stimulation was performed with a good driving response seen. No pathological waves were elicited. Hyperventilation was not performed. Rare movement artifacts are seen. The patient remains awake throughout the tracing. No epileptiform discharges were seen. Her EKG lead showed a regular rate and rhythm. INTERPRETATION: This awake EEG can be considered within normal limits. There was no asymmetry seen. No epileptiform discharges were noticed. The absence of epileptiform discharges does not rule out the diagnosis of epilepsy; therefore clinical correlation is recommended. DEMARCUS / ESTEFANIA: [id number] /
--- NOTE | 2018-01-14 19:45 | P.PN ---
Subjective Progress Note Date: 01/14/18 Principal diagnosis: TIA Neurology is following a 62-year-old female being evaluated for TIA. Patient was brought to the emergency room by her for slurred speech noticed left facial droop. Patient complained of secondary headache. In the emergency room patients blood pressure was found to be significantly elevated at 162/ 105. CT of the brain showed no acute process. CT angiogram of the neck was done which showed no significant stenosis. 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 Baseline laboratory blood work showed cardiac enzymes and urinalysis were normal. INR was normal. CMP showed no significant abnormalities. CBC noted mild leukocytosis. Patient was started on 325 mg aspirin in the ED. Patient was admitted for further observation. Since admission, patient has had an EEG which was found to be normal. Between initial neurology consult, patients symptoms were reportedly resolved and rounding today. However approximately 2 PM, patients symptoms began to recur and patient notified nursing that she began having a heaviness sensation in the left side of her face. Patient states that her TIA symptoms began in a similar fashion. Provider was on the floor rounding on other patients and ordered an MRI of the brain for further evaluation. Patient had no other symptoms and the reported symptoms resolved prior to provider examining the patient. Total symptom duration was approximately 1-3 minutes. Patient had no other neurological status changes. On contact, patient was supine in bed, resting in no acute distress. MRI is currently ordered and we will await further recommendations until the results are received and reviewed. Patient to continue all medication as previously implemented. Nursing to notify neurology with any further neurological status changes. Objective - Vital Signs Vital signs: Vital Signs Temp 97.8 F 01/14/18 16:00 Pulse 74 01/14/18 16:00 Resp 20 01/14/18 16:00 BP 130/79 01/14/18 16:00 Pulse Ox 95 01/14/18 16:00 Intake & Output 01/14/18 01/14/18 01/15/18 06:59 18:59 06:59 Intake Total 760 477 Balance 760 477 Weight 61.1 kg Intake: Intake, IV Titration 200 Amount Sodium Chloride 0.9% 1, 200 000 ml @ 100 mls/hr IV . Q10H CHITO Rx#:[id number] Oral 560 477 Other: Voiding Method Toilet # Voids 2 2 - Exam General appearance: Alert & oriented x3, no apparent distress. Head: Atraumatic, normocephalic, normal inspection Eyes: Well appearance, PERRLA, EOMI. Absent scleral icterus, conjunctival injection, nystagmus, periorbital swelling. Ear, nose and throat: Normal exam, mucous membranes moist Neck: Normal inspection, absent tenderness, lymphadenopathy. Respiratory: No increased work of breathing Cardiovascular: Regular rate, rhythm GI/abdominal: No guarding Extremities: Full range of motion, normal capillary refill, no tenderness, pedal edema joint swelling, calf tenderness. Neurological: cranial nerves II through XII intact no lateralizing weakness, slight numbness and tingling left side of face resolved minutes before provider conducted physical exam ration of 1-3 minutes occurrences 1 its initial TIA event no seizure activity noted on physical exam no pronator drift and no nystagmus. Left lower extremity: 5/5 Right lower extremity: 5/5 Left upper extremity: 5/5 Right upper extremity:5 /5 Sensation: Left lower extremity: normal Right lower extremity: normal Left upper extremity: normal Right upper extremity:normal Psychological: Mood and Affect appropriate for setting - Labs CBC & Chem 7: 01/14/18 05:54 01/14/18 05:54 Labs: Abnormal Lab Results - Last 24 Hours (Table) 01/14/18 01/14/18 Range/Units 05:54 05:54 RBC 3.73 L (3.80-5.40) m/uL MCV 104.4 H (80.0-100.0) fL Myelocytes # (Manual) 0.05 H (0) k/uL Chloride 113 H (98-107) mmol/L Total Protein 5.7 L (6.3-8.2) g/dL Albumin 3.3 L (3.5-5.0) g/dL Triglycerides 160 H (<150) mg/dL Assessment and Plan (1) TIA (transient ischemic attack) Current Visit: Yes Status: Acute Code(s): G45.9 - TRANSIENT CEREBRAL ISCHEMIC ATTACK, UNSPECIFIED SNOMED Code(s): 610849013 (2) Facial paresthesia Current Visit: Yes Status: Acute Code(s): R20.9 - UNSPECIFIED DISTURBANCES OF SKIN SENSATION SNOMED Code(s): 65657122 Plan: Patient initially presented for dysarthria and left facial droop consistent with TIA, symptoms previously resolved. She was initially started on 325 mg aspirin in the ED. Diagnostic workup performed: CT angiogram of the head and neck as previously noted. EEG performedresults normal CT brain no acute process Lipid panel: Only abnormal -elevated triglycerides Serum homocysteine level: Pending MRI brain without contrast: Ordered and pending Treatment options: Discussed treatment options including risks, benefits and alternatives with the patient. Given the patient's possible recurrence of symptoms consistent with previous TIA , discontinue 325 mg aspirin Prescribe:Plavix 75 mg daily Prescribe:Lipitor 10 mg1 tab by mouth daily at bedtime I have discussed the plan of care with the physician prior to implementation and he agrees with the plan as implemented.
--- NOTE | 2018-01-14 20:36 | MR ---
EXAMINATION TYPE: MR brain wo con DATE OF EXAM: 01/14/2018 COMPARISON: 04/04/2017 HISTORY: TIA and weakness Standard multiplanar, multisequence MRI departmental protocol Multiplanar, multisequence images of the brain were acquired. Diffusion weighted imaging was performe d. FINDINGS: There is minimal cerebral cortical atrophy. There is no mass effect nor midline shift. Ther e is no sign of intracranial hemorrhage. Brainstem appears normal. Cerebellum appears normal. There i s 3 mm focus of increased signal in the anterior right frontal lobe white matter. There is 2 mm focus in the subcutaneous cortical right posterior frontal lobe white matter. Sella turcica appears normal . Corpus callosum appears normal. IMPRESSION: Minimal atrophy. Isolated 2 small white matter high signal foci in the FLAIR images as above in the r ight frontal lobe. These appear new compared to old MR scan. These are nonspecific and could relate t o focus of microvascular ischemia.
[2018-01-14] MEDS: LATANOPROST 0.005% OPHTH DROPS 2.5 ML BTL LEFT EYE SCH (20:47)
[2018-01-14] MEDS: traZODone HCL 100 MG TAB PO SCH (20:48)
[2018-01-14] MEDS: LISINOPRIL 10 MG TAB PO SCH (20:48)
[2018-01-14] MEDS ORDERED: ATORVASTATIN 10 MG TAB PO SCH (21:00)
[2018-01-15] MEDS: traMADol 50 MG TAB PO PRN ×2 (04:37→09:19)
[2018-01-15] MEDS: SODIUM CHLORIDE 0.9% 1,000 ML IV SCH (05:43)
[2018-01-15] MEDS: PANTOPRAZOLE 40 MG TABLET PO SCH (06:15)
[2018-01-15 06:29] LABS: ALT 29 U/L (9-52); AST 30 U/L (14-36); Albumin 3.8 g/dL (3.5-5.0); Alkaline Phosphatase 66 U/L (38-126); Anion Gap 5 mmol/L; Blood Urea Nitrogen 15 mg/dL (7-17); Calcium 9.9 mg/dL (8.4-10.2); Carbon Dioxide 27 mmol/L (22-30); Chloride 107 mmol/L (98-107); Glucose 87 mg/dL (74-99); Sodium 139 mmol/L (137-145); Total Bilirubin 0.4 mg/dL (0.2-1.3); Total Protein 6.3 g/dL (6.3-8.2)
[2018-01-15 06:48] LABS: HCT 43.5 % (34.0-46.0); HGB 13.8 gm/dL (11.4-16.0); MCH 32.9 pg (25.0-35.0); MCHC 31.6 g/dL (31.0-37.0); MCV 103.8 fL (80.0-100.0); Macrocytosis Slight; Mean Platelet Volume 7.2; Platelet Count 297 k/uL (150-450); RBC 4.19 m/uL (3.80-5.40); WBC 6.3 k/uL (3.8-10.6)
[2018-01-15] MEDS: CHOLECALCIFEROL 1,000 UNIT TAB PO SCH (07:41)
[2018-01-15] MEDS: FAMOTIDINE 20 MG TAB PO SCH (07:42)
[2018-01-15] MEDS: LISINOPRIL 10 MG TAB PO SCH (07:42)
[2018-01-15] MEDS: GABAPENTIN 300 MG CAP PO SCH ×2 (07:42→13:35)
[2018-01-15] MEDS: MECLIZINE 25 MG TAB PO SCH (07:42)
[2018-01-15] MEDS: cycloSPORINE 0.05% OPHTH 0.4 ML DROPERETTE BOTH EYES SCH (07:43)
[2018-01-15] MEDS: ENOXAPARIN 40 MG/0.4 ML SYRINGE SQ SCH (07:43)
[2018-01-15] MEDS: MAGNESIUM OXIDE 400 MG TAB PO SCH (07:43)
[2018-01-15] MEDS: DULoxetine HCL 30 MG CAPSULE.DR PO SCH (07:43)
[2018-01-15] MEDS: IPRATROPIUM BROMIDE 0.06% NASAL SPRAY (15 ML) EA NOSTRIL SCH (07:43)
[2018-01-15 07:59] LABS: Eosinophils # (M) 0.13 k/uL (0-0.7); Lymphocytes # (M) 1.83 k/uL (1.0-4.8); Neutrophils # (M) 3.84 k/uL (1.3-7.7); Neutrophils % (M) 61 %; Nucleated Red Blood Cells 0 /100 WBC (0-0); Total Cells Counted 100
[2018-01-15] MEDS ORDERED: CLOPIDOGREL 75 MG TAB PO SCH (09:00)
[2018-01-15 11:49] VITALS: BP 129/88; PULSE 85; RESP 18; TEMP 97.5
--- NOTE | 2018-01-15 11:49 | P.DS ---
Providers Date of admission: 01/13/18 12:59 Expected date of discharge: 01/15/18 Attending physician: Jesse Gibbs Consults: 01/13/18 12:59 Consult Physician Urgent Consulting Provider: Karen Willson Consult Reason/Comments: cva, please review cta Do you want consulting provider notified?: Yes Primary care physician: Pili Caldwell Hospital Course: Discharge diagnosis 1. TIA with Confusion with left-sided headache. Patient states she had episode of slurred speech facial droop noted per . CT of head completed showing no acute intracranial abnormality. CTA completed showing postsurgical changes at the GE junction. Heart normal size with trace anterior pericardial fluid. Aorta normal caliber without evidence for aortic dissection. There is apparent direct takeoff of the left vertebral artery directly from the arch. The left vertebral arteries anemia and becomes hypoplastic along the V4 segment. Prominent hazy dependent densities in lung suggesting areas of atelectasis. Neurology services have been consulted 2-D echo has been ordered. Patient currently on aspirin 325 mg. per neurology patient has been switched to Plavix 75 mg and Lipitor 10 mg. Aspirin has been DC'd. MRI completed showing minimal atrophy. Isolated 2 small white matter high signal foci in the FLAIR images as above in the right frontal lobe. These appear new compared to old MRI scan. These are nonspecific and could relate to focus of microvascular ischemia. EEG completed to be considered within normal limits. Patient is still having headaches. Requesting tramadol upon discharge. Patient has tolerated tramadol throughout stay. Patient will be DC'd with 3 days supply of tramadol 2. History of eye disorder. Home eyedrops resumed 3. History of migraines and vertigo 4. History of hypertension. Lisinopril ordered. Lisinopril has been increased to BID. Current blood pressure 109/75. Patient to follow-up closely with PCP 5. History of GERD. Continue home medication 6. History of osteoarthritis 7. History of rheumatoid arthritis 8. History of anxiety. 9. Basilar tip Aneurysm. Per neurology patient to follow-up with neurosurgery in the outpatient setting and to have a repeat CT angiogram of the brain in 4-6 months to check for changes in size of the aneurysm. Hospital Course This is a 62-year-old female patient of Dr. Caldwell. Patient presents to the emergency room with complaints of confusion and headache that started around 9: 00 morning. Patient was also noted to have facial droop and slurred speech by her . Those symptoms have resolved. Patient does still complain of headache. Patient has known past medical history of eye disorder, GERD, essential hypertension, osteoporosis, rheumatoid arthritis, migraines, vertigo and anxiety. Head CT completed showing no acute intracranial abnormality. Chest x-ray completed showing incidentally, mild tortuosity of the thoracic aorta has increased from 2013. No acute cardiopulmonary process. CT angiogram of the head and neck completed showing postsurgical changes EKG E junction. Heart normal size with trace anterior pericardial fluid. Aorta normal caliber without evidence for aortic dissection. There is apparent direct takeoff of the left vertebral artery directly from the arch. The left vertebral artery is diminutive and becomes hypoplastic along the V4 segment. Prominent hazy dependent densities in the lungs suggestive of atelectasis. troponins negative. 2-D echo has been ordered. Neurology services consulted. WBC 11.5. Patient denies any signs of infection at this time urinary analysis has been ordered. At this time patient denies chest pain or shortness of breath. Does complain of left-sided headache. Patient denies nausea vomiting or diarrhea. Patient denies any urinary burning or frequency. Patient does not have any facial droop or slurred speech at this time. Equal strength throughout all extremities. Patient alert and oriented 3 On 01/14/2018 patient is currently resting comfortably in bed. Patient does complain that she still having mild headache and some left-sided tingling to her upper and lower extremities. At this time patient denies chest pain or shortness of breath. Patient is alert and oriented 3. Patient denies nausea vomiting or diarrhea. Neurology services are following EEG has been ordered On 01/15/2018 patient is currently resting comfortably in bed. Patient is alert and oriented 3. Patient is eager to go home. Discussed case with Niraj per neurology. Patient to stay on Plavix and Lipitor. Patient follow-up in 14 days. MRI results reviewed. Patient to follow-up closely with PCP. Per neurology patient to follow-up with neurosurgery in the outpatient setting and to have a repeat CT angiogram of the brain in 4-6 months to check for changes in size of the aneurysm. I performed an examination of the patient and discussed their management with the Nurse Practitioner. I have reviewed the Nurse Practitioner's notes and agree with the documented findings and plan of care Patient Condition at Discharge: Stable Plan - Discharge Summary Discharge Rx Participant: No New Discharge Prescriptions: New Clopidogrel [Plavix] 75 mg PO DAILY #30 tab Lisinopril [Zestril] 10 mg PO BID #60 tab traMADol HCl [Ultram] 50 mg PO QID PRN #12 tab PRN Reason: Mild To Moderate Pain Atorvastatin Calcium [Lipitor] 10 mg PO HS #30 tab Continue Celecoxib [CeleBREX] 200 mg PO BID traZODone HCL [Desyrel] 100 mg PO HS cycloSPORINE 0.05% OPHTH SOLN [Restasis] 1 drop BOTH EYES BID Gabapentin 600 mg PO QID Travoprost [Travatan Z 0.004%] 1 drop LEFT EYE HS Pantoprazole Sodium 20 mg PO DAILY Meclizine [Antivert] 25 mg PO TID Cholecalciferol (Vitamin D3) [Vitamin D3] 2,000 unit PO DAILY Magnesium Oxide [Darby] 500 mg PO DAILY Famotidine [Pepcid] 40 mg PO DAILY DULoxetine HCL [Cymbalta] 60 mg PO DAILY DULoxetine HCL [Cymbalta] 30 mg PO DAILY Ipratropium [place] 0.06%Nasal [Atrovent Nasal 0.06%] 1 spray EA NOSTRIL DAILY Discontinued Lisinopril [Zestril] 10 mg PO DAILY Discharge Medication List Celecoxib [CeleBREX] 200 mg PO BID 08/11/14 [History] traZODone HCL [Desyrel] 100 mg PO HS 08/11/14 [History] Gabapentin 600 mg PO QID 02/25/16 [History] Travoprost [Travatan Z 0.004%] 1 drop LEFT EYE HS 02/25/16 [History] cycloSPORINE 0.05% OPHTH SOLN [Restasis] 1 drop BOTH EYES BID 02/25/16 [History] Meclizine [Antivert] 25 mg PO TID 09/15/17 [History] Pantoprazole Sodium 20 mg PO DAILY 09/15/17 [History] Cholecalciferol (Vitamin D3) [Vitamin D3] 2,000 unit PO DAILY 01/13/18 [History] DULoxetine HCL [Cymbalta] 30 mg PO DAILY 01/13/18 [History] DULoxetine HCL [Cymbalta] 60 mg PO DAILY 01/13/18 [History] Famotidine [Pepcid] 40 mg PO DAILY 01/13/18 [History] Ipratropium [place] 0.06%Nasal [Atrovent Nasal 0.06%] 1 spray EA NOSTRIL DAILY 01/13/18 [History] Magnesium Oxide [Darby] 500 mg PO DAILY 01/13/18 [History] Atorvastatin Calcium [Lipitor] 10 mg PO HS #30 tab 01/15/18 [Rx] Clopidogrel [Plavix] 75 mg PO DAILY #30 tab 01/15/18 [Rx] Lisinopril [Zestril] 10 mg PO BID #60 tab 01/15/18 [Rx] traMADol HCl [Ultram] 50 mg PO QID PRN #12 tab 01/15/18 [Rx] Follow up Appointment(s)/Referral(s): Pili Caldwell DO [Primary Care Provider] - 01/20/18 1:30 pm (Dr. Caldwell to refer you to a neurologist outpatient. Dr. Willson does not accept your insurance.) Karen Willson MD [STAFF PHYSICIAN] - 2 Weeks Patient Instructions/Handouts: Transient Ischemic Attack (DC), Hypertension (DC ) Activity/Diet/Wound Care/Special Instructions: diet heart healthy activity as tolerated Discharge Disposition: HOME SELF-CARE
== END 2018-01-15 14:24 | disposition home or self-care (01) | DRG 69 ==
LOC: EC 10:54 → 6SEL 12:59
PROVIDERS: ADMIT Internal Medicine; ATTEND Internal Medicine
DX: G45.9 Transient cerebral ischemic attack, unspecified (principal); Q28.1 Other malformations of precerebral vessels; J98.11 Atelectasis; I72.5 Aneurysm of other precerebral arteries; I10 Essential (primary) hypertension; M81.0 Age-related osteoporosis without current pathological fracture; K21.9 Gastro-esophageal reflux disease without esophagitis; M06.9 Rheumatoid arthritis, unspecified; F41.9 Anxiety disorder, unspecified; M19.91 Primary osteoarthritis, unspecified site; G43.909 Migraine, unspecified, not intractable, without status migrainosus; D72.829 Elevated white blood cell count, unspecified; H40.9 Unspecified glaucoma; Z82.49 Family history of ischemic heart disease and other diseases of the circulatory system; Z79.1 Long term (current) use of non-steroidal anti-inflammatories (NSAID); Z79.899 Other long term (current) drug therapy; Z87.891 Personal history of nicotine dependence; Z90.49 Acquired absence of other specified parts of digestive tract; Z90.710 Acquired absence of both cervix and uterus; Z88.6 Allergy status to analgesic agent; Z88.5 Allergy status to narcotic agent; Z91.048 Other nonmedicinal substance allergy status; Z80.7 Family history of other malignant neoplasms of lymphoid, hematopoietic and related tissues; Z80.42 Family history of malignant neoplasm of prostate
CPT/HCPCS: 36415; 70450; 70496; 70498; 70551; 71046; 80053; 80061; 81003; 82550; 82553; 83090; 84484; 85025; 85610; 85730; 93005; 93306; 95819; 96374; 99285

== ENCOUNTER → 2018-01-25 | Outpatient (CLI) | payer OTHER ==
[2018-01-25 17:56] LABS: HCT 39.4 % (34.0-46.0); HGB 12.7 gm/dL (11.4-16.0); MCH 32.6 pg (25.0-35.0); MCHC 32.4 g/dL (31.0-37.0); MCV 100.6 fL (80.0-100.0); Mean Platelet Volume 6.9; Platelet Count 305 k/uL (150-450); RBC 3.91 m/uL (3.80-5.40); RDW 13.1 % (11.5-15.5); WBC 5.9 k/uL (3.8-10.6)
[2018-01-25 18:04] LABS: INR 0.9 (<1.2); Partial Thromboplastin Time 24.9 sec (22.0-30.0); Prothrombin Time 9.4 sec (9.0-12.0)
[2018-01-25 18:08] LABS: Anion Gap 7 mmol/L; Blood Urea Nitrogen 13 mg/dL (7-17); Carbon Dioxide 26 mmol/L (22-30); Chloride 106 mmol/L (98-107); Potassium 4.7 mmol/L (3.5-5.1); Sodium 139 mmol/L (137-145)
[2018-01-25 18:54] LABS: Band Neutrophils % 2 %; Lymphocytes # (M) 1.77 k/uL (1.0-4.8); Monocytes # (M) 0.06 k/uL (0-1.0); Neutrophils % (M) 67 %; Nucleated Red Blood Cells 0 /100 WBC (0-0); Total Cells Counted 100
[2018-01-26 15:20] LABS: Appearance,Urine Clear (Clear); Bilirubin,Urine Negative (Negative); Blood,Urine Negative (Negative); Color,Urine Light Yellow; Glucose,Urine (UA) Negative (Negative); Ketones,Urine Negative (Negative); Leukocyte Esterase,Urine Negative (Negative); Nitrite,Urine Negative (Negative); PH, Urine 6.5 (5.0-8.0); Protein,Urine Negative (Negative); Specific Gravity,Urine 1.008 (1.001-1.035); Urobilinogen,Urine <2.0 mg/dL (<2.0)
== END | disposition home or self-care (01) ==
LOC: LABWHC1 16:21
PROVIDERS: ATTEND Specialist
DX: I67.1 Cerebral aneurysm, nonruptured (principal)
CPT/HCPCS: 36415; 80051; 81003; 82565; 84520; 85025; 85610; 85730; 87086; 93005

== ENCOUNTER → 2018-02-09 | Outpatient (CLI) | payer OTHER ==
[2018-02-09 14:05] VITALS: BP 153/82; PULSE 74; TEMP 97.2; BMI 26.4
--- NOTE | 2018-02-09 14:53 | P.HPOB ---
History of Present Illness H&P Date: 02/09/18 Chief Complaint: The patient is here for her routine gynecologic exam and mammogram. This is a 62-year-old with an LMP of 1987. She is status post [facility] BSO for benign reasons. She was seen in August and was found to have a small cystocele. She denies any problems with this. Review of Systems The patient has lost 5 pounds over the last year. She denies respiratory, cardiac, or G.I. problems. Past Medical History Past Medical History: CVA/TIA (2018 TIA), Eye Disorder, GERD/Reflux, Hypertension, Osteoarthritis (OA), Rheumatoid Arthritis (RA) Additional Past Medical History / Comment(s): Vertigo, migraines, arthritis/ rheumatoid arthritis multiple joints, osteoporosis, L eye glaucoma, and restless leg syndrome. 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 She had a hysterectomy for endometriosis. History of Any Multi-Drug Resistant Organisms: None Reported Past Surgical History: Appendectomy, Hernia Repair (Hiatal hernia), Hysterectomy (RYDER in 1987. BSO in 1988.), Orthopedic Surgery (Shoulder surgery) Additional Past Surgical History / Comment(s): L rotator cuff repair, hiatal hernia repair, multiple laparoscopic surgeries for ovarian cysts, colonoscopy 2012 (with upper endoscopy) and 2014. Past Anesthesia/Blood Transfusion Reactions: No Reported Reaction Past Psychological History: Anxiety Additional Psychological History / Comment(s): Pt resides with her spouse. They have a dog. 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 She is independent. 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 She has been since January 2017 and this is her 3rd marriage. - Past Family History Mother Family Medical History: Cancer (Leukemia) Brother(s) Family Medical History: Cancer (Colon cancer) Father Family Medical History: COPD Additional Family Medical History / Comment(s): Parkinson's disease. Paternal grandmother had breast cancer. Medications and Allergies Home Medications Medication Instructions Recorded Confirmed Type Celecoxib [CeleBREX] 200 mg PO BID 08/11/14 02/09/18 History traZODone HCL [Desyrel] 100 mg PO HS 08/11/14 02/09/18 History Gabapentin 600 mg PO QID 02/25/16 02/09/18 History Travoprost [Travatan Z 0.004%] 1 drop LEFT EYE HS 02/25/16 02/09/18 History cycloSPORINE 0.05% OPHTH SOLN 1 drop BOTH EYES BID 02/25/16 02/09/18 History [Restasis] Meclizine [Antivert] 25 mg PO TID 09/15/17 02/09/18 History Cholecalciferol (Vitamin D3) 2,000 unit PO DAILY 01/13/18 02/09/18 History [Vitamin D3] DULoxetine HCL [Cymbalta] 30 mg PO DAILY 01/13/18 02/09/18 History DULoxetine HCL [Cymbalta] 60 mg PO DAILY 01/13/18 02/09/18 History Famotidine [Pepcid] 40 mg PO DAILY 01/13/18 02/09/18 History Ipratropium [place] 0.06%Nasal 1 spray EA NOSTRIL DAILY 01/13/18 02/09/18 History [Atrovent Nasal 0.06%] Magnesium Oxide [Darby] 500 mg PO DAILY 01/13/18 02/09/18 History Atorvastatin Calcium [Lipitor] 10 mg PO HS #30 tab 01/15/18 Rx Lisinopril [Zestril] 10 mg PO BID #60 tab 01/15/18 02/09/18 Rx Clopidogrel [Plavix] 75 mg PO DAILY 02/09/18 02/09/18 History Allergies Allergy/AdvReac Type Severity Reaction Status Date / Time adhesive tape Allergy peels skin Verified 02/09/18 14:02 off, bruises aspirin [From Percodan] Allergy Dyspnea Verified 02/09/18 14:02 oxycodone HCl [From Percodan] Allergy Dyspnea Verified 02/09/18 14:02 oxycodone terephthalate Allergy Dyspnea Verified 02/09/18 14:02 [From Percodan] Exam Vital Signs Temp Pulse BP 02/09/18 14:03 97.2 F L 74 153/82 Intake and Output 02/08/18 02/09/18 02/09/18 22:59 06:59 14:59 Other: Weight 61.235 kg Height 5'0", weight 135 pounds, BMI 26.4. This is a well-developed well-nourished white female who is alert and oriented times 3 in no acute distress. HEENT: Within normal limits. NECK: Supple without mass or thyromegaly. CHEST AND LUNGS: Clear to auscultation. HEART: Regular rate and rhythm. BREASTS: Are without mass or discharge. AXILLARY EXAM: Negative for adenopathy. BACK: Negative for CVA tenderness. ABDOMEN: Soft, nontender, without palpable masses. PELVIC EXAM: External genitalia appears normal with mild to moderate atrophy. Vagina appears normal mild to moderate atrophy. There is there is a grade 1 cystocele. There is no other evidence of prolapse. Bimanual examination is negative for mass or tenderness. RECTAL EXAM: Rectovaginal exam is negative for mass or tenderness and is negative for occult blood. EXTREMITIES: Nontender. IMPRESSION: 1. 62-year-old menopausal female with stable grade 1 cystocele. History of osteoporosis managed by Dr. Caldwell, her primary care physician. 2. Status post RYDER and later BSO for benign reasons. PLAN: 1. Pap smears have been discontinued. 2. Self breast awareness was discussed with the patient. 3. Screening mammogram will be done today. 4. Osteoporosis management was discussed. She has been having this managed by her primary care physician and she will continue to do it this way. She will also see him for bone density testing as she has done in the past. 5. She will return in one year.
--- NOTE | 2018-02-10 13:24 | MM ---
Reason for exam: screening (asymptomatic). Last mammogram was performed 1 year and 2 months ago. History: Patient is postmenopausal. Family history of breast cancer in grandmother at age 60. Took estrogen for 4 years. Physical Findings: A clinical breast exam by your physician is recommended on an annual basis and results should be correlated with mammographic findings. MG Screening Mammo w CAD Bilateral CC and MLO view(s) were taken. Prior study comparison: December 16, 2016, bilateral MG screening mammo w CAD. September 26, 2015, bilateral MG screening mammo w CAD. There are scattered fibroglandular densities. No suspicious abnormality. No significant changes when compared with prior studies. ASSESSMENT: Negative, BI-RAD 1 RECOMMENDATION: Routine screening mammogram of both breasts in 1 year.
== END | disposition home or self-care (01) ==
LOC: WWCWWP 13:48
PROVIDERS: ATTEND Obstetrics & Gynecology
DX: Z12.31 Encounter for screening mammogram for malignant neoplasm of breast (principal)
CPT/HCPCS: 77067

== ENCOUNTER 2018-06-06 20:26 | Emergency (ER) | payer BC, OTHER ==
[2018-06-06 20:56] VITALS: BP 117/81; PULSE 75; RESP 18; TEMP 97.5
[2018-06-06] MEDS ORDERED: TOPICAL SKIN ADHESIVE 1 EACH AMP TOPICAL ONE (21:34)
--- NOTE | 2018-06-06 21:36 | ED ---
Fall HPI - General Chief Complaint: Fall Stated Complaint: lac left eye & cheek Time Seen by Provider: 06/06/18 20:50 Source: family, RN notes reviewed, old records reviewed Mode of arrival: ambulatory - History of Present Illness Initial Comments: Patient is a 62-year-old female presents emergency room to complain of falling from a squatting position forward and hitting her head on the concrete floor in her carotid. Patient reports that she was cleaning off her dogs and lost her balance slightly and fell. Patient complains of a laceration over the left temporal bone and over her left eyebrow. Patient states that she does have a headache at this time. She is currently on Plavix.Patient denies any recent fever, chills, shortness of breath, chest pain, back pain, abdominal pain, nausea vomiting, numbness or tingling, dysuria or hematuria, constipation or diarrhea, headaches or visual changes, or any other current symptoms - Related Data Home Medications Medication Instructions Recorded Confirmed Celecoxib [CeleBREX] 200 mg PO BID 08/11/14 02/09/18 traZODone HCL [Desyrel] 100 mg PO HS 08/11/14 02/09/18 Gabapentin 600 mg PO QID 02/25/16 02/09/18 Travoprost [Travatan Z 0.004%] 1 drop LEFT EYE HS 02/25/16 02/09/18 cycloSPORINE 0.05% OPHTH SOLN 1 drop BOTH EYES BID 02/25/16 02/09/18 [Restasis] Meclizine [Antivert] 25 mg PO TID 09/15/17 02/09/18 Cholecalciferol (Vitamin D3) 2,000 unit PO DAILY 01/13/18 02/09/18 [Vitamin D3] DULoxetine HCL [Cymbalta] 30 mg PO DAILY 01/13/18 02/09/18 DULoxetine HCL [Cymbalta] 60 mg PO DAILY 01/13/18 02/09/18 Famotidine [Pepcid] 40 mg PO DAILY 01/13/18 02/09/18 Ipratropium [place] 0.06%Nasal 1 spray EA NOSTRIL DAILY 01/13/18 02/09/18 [Atrovent Nasal 0.06%] Magnesium Oxide [Darby] 500 mg PO DAILY 01/13/18 02/09/18 Clopidogrel [Plavix] 75 mg PO DAILY 02/09/18 02/09/18 Previous Rx's Medication Instructions Recorded Atorvastatin Calcium [Lipitor] 10 mg PO HS #30 tab 01/15/18 Lisinopril [Zestril] 10 mg PO BID #60 tab 01/15/18 Allergies Allergy/AdvReac Type Severity Reaction Status Date / Time adhesive tape Allergy peels skin Verified 06/06/18 20:57 off, bruises aspirin [From Percodan] Allergy Dyspnea Verified 06/06/18 20:57 oxycodone HCl [From Percodan] Allergy Dyspnea Verified 06/06/18 20:57 oxycodone terephthalate Allergy Dyspnea Verified 06/06/18 20:57 [From Percodan] Review of Systems ROS Statement: Those systems with pertinent positive or pertinent negative responses have been documented in the HPI. ROS Other: All systems not noted in ROS Statement are negative. Past Medical History Past Medical History: CVA/TIA, Eye Disorder, GERD/Reflux, Hypertension, Osteoarthritis (OA), Rheumatoid Arthritis (RA) Additional Past Medical History / Comment(s): Vertigo, migraines, arthritis/ rheumatoid arthritis multiple joints, osteoporosis, L eye glaucoma, and restless leg syndrome. 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 She had a hysterectomy for endometriosis. History of Any Multi-Drug Resistant Organisms: None Reported Past Surgical History: Appendectomy, Hernia Repair, Hysterectomy, Orthopedic Surgery Additional Past Surgical History / Comment(s): L rotator cuff repair, hiatal hernia repair, multiple laparoscopic surgeries for ovarian cysts, colonoscopy 2012 (with upper endoscopy) and 2014. Past Anesthesia/Blood Transfusion Reactions: No Reported Reaction Past Psychological History: Anxiety Smoking Status: Former smoker Past Alcohol Use History: Rare Past Drug Use History: None Reported - Past Family History Mother Family Medical History: Cancer (Leukemia) Brother(s) Family Medical History: Cancer (Colon cancer) Father Family Medical History: COPD Additional Family Medical History / Comment(s): Parkinson's disease. Paternal grandmother had breast cancer. General Exam - General Exam Comments Initial Comments: 62-year-old female. Alert and oriented. No distress. Limitations: no limitations General appearance: alert, in no apparent distress Head exam: Present: atraumatic, normocephalic, normal inspection, other (3 cm laceration over the left eyebrow.) Eye exam: Present: normal appearance, PERRL, EOMI. Absent: scleral icterus, conjunctival injection, periorbital swelling ENT exam: Present: normal exam, normal oropharynx, mucous membranes moist, other (M shaped skin tear over L oriental orthodox) Neck exam: Present: normal inspection. Absent: tenderness, meningismus, lymphadenopathy Respiratory exam: Present: normal lung sounds bilaterally. Absent: respiratory distress, wheezes, rales, rhonchi, stridor Cardiovascular Exam: Present: regular rate, normal rhythm, normal heart sounds. Absent: systolic murmur, diastolic murmur, rubs, gallop, clicks GI/Abdominal exam: Present: soft, normal bowel sounds. Absent: distended, tenderness, guarding, rebound, rigid Extremities exam: Present: normal inspection, full ROM, normal capillary refill. Absent: tenderness, pedal edema, joint swelling, calf tenderness Back exam: Present: normal inspection Neurological exam: Present: alert, oriented X3, CN II-XII intact Psychiatric exam: Present: normal affect, normal mood Skin exam: Present: warm, dry, intact, normal color. Absent: rash Course Vital Signs 06/06/18 20:52 Temperature 97.5 F L Pulse Rate 75 Respiratory 18 Rate Blood Pressure 117/81 O2 Sat by Pulse 98 Oximetry Procedures - Laceration Laceration #1 Site: face (L eyebrow) Size (cm): 2 Description: linear Depth: simple, single layer Anesthetic Used: lidocaine 1% Anesthesia Technique: local infiltration Amount (mls): 4 Pre-repair: wound explored, irrigated extensively Type of Sutures: nylon Size of Sutures: 6-0 Number of Sutures: 4 Technique: simple, interrupted Patient Tolerated Procedure: well, no complications Laceration #2 Site: face Size (cm): 2 Description: flap (skin tear L oriental orthodox) Type of Sutures: other (dermabond) Patient Tolerated Procedure: well, no complications Medical Decision Making - Medical Decision Making Patient is a 62 year old female after slip and fall in garage from squatting position, presents with head injury, eyebrow lac, and skin tear. She is on plavix. No neurodeficits noted. No LOC. She has normal CT brain. No hemorrhage or midline shift seen. She had lacerations cleaned and well approximated with suture and skin adhesive. Discused head injury instructions. She was given Updated TDAP as well. Disucssed strict return parameters and monitoring with family for aMS. Family and patient agree to treatment plan and will comply. - Radiology Data Radiology results: report reviewed Negatiave CT brain. Disposition Clinical Impression: Fall, Head injury, Eyebrow laceration, Skin tear Disposition: HOME SELF-CARE Condition: Good Instructions (If sedation given, give patient instructions): Head Injury (ED), Skin Adhesive Care (ED) Additional Instructions: Please return to the emergency room in 7 days to have sutures removed. Please leave wound covered for the first 24-48 hours and then leave open to air after that time. Please use clean soap and water to clean the suture area to prevent scabbing over the top of your sutures. Please watch for any signs of infection which may include but not limited to increased pain, swelling, redness, fever or chills. Please return to the emergency room if any signs of infection do occur. Please return to the emergency room for any other concerns or complications. Patient should be monitored for the next 24-48 hours. There is any signs of altered mental status Patient should return for reevaluation. Recommend monitoring the patient's through the night and waking her up. Motrin and Tylenol for headache and pain Is patient prescribed a controlled substance at d/c from ED?: No Referrals: Pili Caldwell DO [Primary Care Provider] - 1-2 days Time of Disposition: 22:12
[2018-06-06] MEDS ORDERED: DIPH,PERTUS(ACELL)TETVAC-LF 0.5 ML VIAL IM ONE (21:43)
[2018-06-06] MEDS ORDERED: IBUPROFEN 600 MG TAB PO STA (21:43)
[2018-06-06] MEDS ORDERED: ACETAMINOPHEN TAB 500 MG TAB PO STA (21:43)
[2018-06-06] MEDS ORDERED: LIDOCAINE 1% INJ 10MG/ML (20 ML MDV) SQ ONE (21:43)
--- NOTE | 2018-06-06 21:47 | CT ---
EXAMINATION TYPE: CT brain wo con DATE OF EXAM: 06/06/2018 COMPARISON: 01/13/2018 HISTORY: fall, lacerations around left eye CT DLP: 1054.4 mGycm Automated exposure control for dose reduction was used. FINDINGS: Ventricles have normal size.. There is no mass effect nor midline shift. There is no sign of intracra nial hemorrhage. The calvarium is intact. IMPRESSION: NEGATIVE CT SCAN OF THE BRAIN. NO CHANGE COMPARED TO OLD EXAM.
== END 2018-06-06 22:31 | disposition home or self-care (01) ==
LOC: EC 20:26
DX: S01.112A Laceration without foreign body of left eyelid and periocular area, initial encounter (principal); S01.81XA Laceration without foreign body of other part of head, initial encounter; Z23 Encounter for immunization; K21.9 Gastro-esophageal reflux disease without esophagitis; I10 Essential (primary) hypertension; F41.9 Anxiety disorder, unspecified; M19.90 Unspecified osteoarthritis, unspecified site; M06.9 Rheumatoid arthritis, unspecified; Z79.51 Long term (current) use of inhaled steroids; Z79.02 Long term (current) use of antithrombotics/antiplatelets; Z79.899 Other long term (current) drug therapy; Z91.048 Other nonmedicinal substance allergy status; Z88.6 Allergy status to analgesic agent; Z88.8 Allergy status to other drugs, medicaments and biological substances; Z87.891 Personal history of nicotine dependence; W18.09XA Striking against other object with subsequent fall, initial encounter; Y93.K9 Activity, other involving animal care; Y92.009 Unspecified place in unspecified non-institutional (private) residence as the place of occurrence of the external cause
CPT/HCPCS: 70450; 90715; 99284; 12013; 90471; J2001

== ENCOUNTER → 2018-08-18 | Day surgery (SDC) | payer BC ==
[2018-07-27 15:26] VITALS: BMI 26.2
[~2018-08-18] MED LIST: GLUCAGON 1 MG/ML VIAL ONE; LACTATED RINGERS 1,000 ML IV SCH; LIDOCAINE 1% 20 ML VIAL (10MG/ML) FOR IV START INTRADERMA ONE; PROPOFOL 10 MG/ML 20 ML VIAL IV ONE
[2018-08-18 12:01] VITALS: RESP 16; TEMP 98.3
[2018-08-18] MEDS: fentaNYL (PF) 50 MCG/ML 2 ML AMP IV ONE ×2 (12:12→12:49)
--- NOTE | 2018-08-18 13:21 | P.GSHP ---
History of Present Illness H&P Date: 08/18/18 Chief Complaint: Screening colonoscopy This is a 63-year-old female referred from Dr. Pili brunson. Patient rents today for screening colonoscopy. She states that she has a strong family history of colon cancer with her brother having colon cancer. She denies a significant GI complaints. Past Medical History Past Medical History: CVA/TIA, Eye Disorder, GERD/Reflux, Hypertension, Osteoarthritis (OA), Rheumatoid Arthritis (RA) Additional Past Medical History / Comment(s): bleeding with stools intermittently,Vertigo, migraines,osteoporosis, L eye glaucoma, and restless leg syndrome,TIA-no residual History of Any Multi-Drug Resistant Organisms: None Reported Past Surgical History: Appendectomy, Hernia Repair, Hysterectomy, Orthopedic Surgery Additional Past Surgical History / Comment(s): L rotator cuff repair, hiatal hernia repair, multiple laparoscopic surgeries for ovarian cysts, colonoscopy 2012 (with upper endoscopy) Past Anesthesia/Blood Transfusion Reactions: No Reported Reaction Additional Past Anesthesia/Blood Transfusion Reaction / Comment(s): no hx blood transfusion Smoking Status: Former smoker - Past Family History Mother Family Medical History: Cancer Brother(s) Family Medical History: Cancer Father Family Medical History: COPD Additional Family Medical History / Comment(s): Parkinson's disease. Paternal grandmother had breast cancer. Medications and Allergies Home Medications Medication Instructions Recorded Confirmed Type Celecoxib [CeleBREX] 200 mg PO DAILY 08/11/14 08/18/18 History traZODone HCL [Desyrel] 100 mg PO HS 08/11/14 08/18/18 History Gabapentin 600 mg PO QID PRN 02/25/16 08/18/18 History Travoprost [Travatan Z 0.004%] 1 drop LEFT EYE HS 02/25/16 08/18/18 History cycloSPORINE 0.05% OPHTH SOLN 1 drop BOTH EYES BID 02/25/16 08/18/18 History [Restasis] Meclizine [Antivert] 25 mg PO QAM 09/15/17 08/18/18 History Cholecalciferol (Vitamin D3) 2,000 unit PO DAILY 01/13/18 08/18/18 History [Vitamin D3] DULoxetine HCL [Cymbalta] 30 mg PO QAM 01/13/18 08/18/18 History DULoxetine HCL [Cymbalta] 60 mg PO QAM 01/13/18 08/18/18 History Famotidine [Pepcid] 40 mg PO HS 01/13/18 08/18/18 History Ipratropium [place] 0.06%Nasal 1 spray EA NOSTRIL DAILY 01/13/18 08/18/18 History [Atrovent Nasal 0.06%] Magnesium Oxide [Darby] 500 mg PO DAILY 01/13/18 08/18/18 History Atorvastatin Calcium [Lipitor] 10 mg PO HS #30 tab 01/15/18 08/18/18 Rx Clopidogrel [Plavix] 75 mg PO DAILY 02/09/18 08/18/18 History Carvedilol [Coreg] 6.25 mg PO BID 07/27/18 08/18/18 History Lisinopril [Zestril] 40 mg PO QAM 07/27/18 08/18/18 History Pantoprazole Sodium [Protonix] 20 mg PO QAM 07/27/18 08/18/18 History Allergies Allergy/AdvReac Type Severity Reaction Status Date / Time adhesive tape Allergy peels skin Verified 08/18/18 12:01 off, bruises aspirin [From Percodan] Allergy Dyspnea Verified 08/18/18 12:01 oxycodone HCl [From Percodan] Allergy Dyspnea Verified 08/18/18 12:01 oxycodone terephthalate Allergy Dyspnea Verified 08/18/18 12:01 [From Percodan] Surgical - Exam Vital Signs Temp Pulse Resp BP Pulse Ox 98.3 F 82 16 139/63 95 08/18/18 11:59 08/18/18 11:59 08/18/18 11:59 08/18/18 11:59 08/18/18 11:59 - General well developed, well nourished, no distress - Eyes PERRL - ENT normal pinna - Neck no masses - Respiratory normal expansion - Cardiovascular Rhythm: regular - Abdomen Abdomen: soft, non tender Assessment and Plan Assessment: Family history of colon Cancer We'll perform screening colonoscopy.
--- NOTE | 2018-08-18 14:05 | P.OP ---
Date of Procedure: 08/18/18 Preoperative Diagnosis: Screening colonoscopy Family history history of colon cancer Postoperative Diagnosis: Normal colon Procedure(s) Performed: Colonoscopy Anesthesia: MAC Surgeon: Tomas Love Pathology: none sent Condition: stable Disposition: PACU Description of Procedure: PROCEDURE: The patient was placed on the endoscopy table in the lateral position. Digital rectal examination was performed which revealed no abnormalities. . Flexible colonoscope was then placed in the patient's anus and passed throughout the entire colon. The ileocecal valve was visualized. The cecum, ascending, transverse, descending and sigmoid colon were normal. The rectum was normal as well. There were no masses, polyps or diverticula noted in the entire colon. SUMMARY OF FINDINGS: Normal colonoscopy.
[2018-08-18 14:18] VITALS: BP 142/61; PULSE 77
== END | disposition home or self-care (01) ==
LOC: ORWHC2ENDO 11:27
PROVIDERS: ATTEND Surgery
DX: Z12.11 Encounter for screening for malignant neoplasm of colon (principal); Z80.0 Family history of malignant neoplasm of digestive organs; G25.81 Restless legs syndrome; I10 Essential (primary) hypertension; K21.9 Gastro-esophageal reflux disease without esophagitis; M06.9 Rheumatoid arthritis, unspecified; M81.0 Age-related osteoporosis without current pathological fracture; N83.209 Unspecified ovarian cyst, unspecified side; Z86.73 Personal history of transient ischemic attack (TIA), and cerebral infarction without residual deficits; Z87.891 Personal history of nicotine dependence; Z88.5 Allergy status to narcotic agent; Z88.6 Allergy status to analgesic agent; Z79.899 Other long term (current) drug therapy
CPT/HCPCS: J1610; J3010; J2704; G0105

== ENCOUNTER → 2019-03-28 | Outpatient (CLI) | payer BC ==
[2019-03-28 17:30] LABS: HCT 40.1 % (34.0-46.0); HGB 13.3 gm/dL (11.4-16.0); MCH 33.8 pg (25.0-35.0); MCHC 33.1 g/dL (31.0-37.0); MCV 102.1 fL (80.0-100.0); Macrocytosis Slight; Mean Platelet Volume 7.7; Platelet Count 333 k/uL (150-450); RBC 3.93 m/uL (3.80-5.40); RDW 12.6 % (11.5-15.5); WBC 6.9 k/uL (3.8-10.6)
--- NOTE | 2019-03-28 17:46 | XR ---
EXAMINATION TYPE: XR chest 2V DATE OF EXAM: 03/28/2019 COMPARISON: 01/13/2018 HISTORY: Short of breath TECHNIQUE: Frontal and lateral views of the chest are obtained. FINDINGS: Heart is normal. Lungs are clear of infiltrate. There is no pleural effusion. Bony thorax is intact. There are no hilar masses. IMPRESSION: No active cardiopulmonary disease. Normal heart. No change.
[2019-03-28 18:09] LABS: Eosinophils # (M) 0.21 k/uL (0-0.7); Lymphocytes # (M) 2.28 k/uL (1.0-4.8); Monocytes # (M) 0.41 k/uL (0-1.0); Neutrophils % (M) 58 %; Nucleated Red Blood Cells 0 /100 WBC (0-0); Total Cells Counted 100
[2019-03-28 19:47] LABS: Erythrocyte Sedimentation Rate 9 mm/hr (0-20)
== END | disposition home or self-care (01) ==
LOC: LABWHC1 16:53
PROVIDERS: ATTEND Physical Medicine & Rehabilitation
DX: M50.122 Cervical disc disorder at C5-C6 level with radiculopathy (principal); M43.12 Spondylolisthesis, cervical region; M47.22 Other spondylosis with radiculopathy, cervical region; M25.78 Osteophyte, vertebrae; M79.12 Myalgia of auxiliary muscles, head and neck; R91.8 Other nonspecific abnormal finding of lung field
CPT/HCPCS: 36415; 71046; 85025; 85652; 86140

== ENCOUNTER → 2019-11-18 | Outpatient (CLI) | payer BC ==
--- NOTE | 2019-11-21 09:23 | MM ---
Reason for exam: screening (asymptomatic). Last mammogram was performed 1 year and 9 months ago. History: Patient is postmenopausal. Family history of breast cancer in grandmother at age 60. Took estrogen for 2 years beginning at age 32. Physical Findings: A clinical breast exam by your physician is recommended on an annual basis and results should be correlated with mammographic findings. MG Screening Mammo w CAD Bilateral CC and MLO view(s) were taken. Prior study comparison: February 09, 2018, bilateral MG screening mammo w CAD. December 16, 2016, bilateral MG screening mammo w CAD. There are scattered fibroglandular densities. There is no discrete abnormality. ASSESSMENT: Negative, BI-RAD 1 RECOMMENDATION: Routine screening mammogram of both breasts in 1 year.
== END | disposition home or self-care (01) ==
LOC: RADMAMWWP 07:05
PROVIDERS: ATTEND Family Medicine
DX: Z12.31 Encounter for screening mammogram for malignant neoplasm of breast (principal)
CPT/HCPCS: 77067

== ENCOUNTER → 2020-02-03 | Outpatient (CLI) | payer BC ==
--- NOTE | 2020-02-03 13:34 | CT ---
EXAMINATION TYPE: CT abdomen pelvis w con DATE OF EXAM: 02/03/2020 COMPARISON: Abdominal ultrasound 01/12/2020 HISTORY: Change in bowel habits CT DLP: 376.20 mGycm Automated exposure control for dose reduction was used. TECHNIQUE: Helical acquisition of images was performed from the lung bases through the pelvis. CONTRAST: Performed with Oral Contrast and with IV Contrast, patient injected with 100 ml mL of Isovue 300. FINDINGS: LUNG BASES: Normal. LIVER: Too small to catheterize hypodense lesion of the right inferior lobe (3:34). BILIARY SYSTEM: Normal. PANCREAS: Normal. SPLEEN: Normal. ADRENALS: Normal. KIDNEYS: No hydronephrosis or hydroureter. Too small to characterize hypodense lesion of the right re nal upper pole (3:19). There is homogenous and synchronous renal enhancement. BOWEL: No obstruction. There is a region of the mid and high rectum which demonstrates wall thickeni ng spanning approximately 4 cm, 7.2 cm from the anal verge (8:55, 3:59-64). Mild sigmoid colon divert iculosis. No acute diverticulitis. PERITONEUM: No pneumoperitoneum. No free fluid. LYMPH NODES: No lymphadenopathy. PELVIS: Normal urinary bladder. Status post hysterectomy. VASCULATURE: No abdominal aortic aneurysm. MUSCULOSKELETAL: Degenerative changes and dextroscoliotic curvature of the spine. IMPRESSION: Indeterminate wall thickening of the mid and high rectum, which may be due to incomplete distention. Findings span approximately 4 cm, 7.2 cm from the anal verge. Recommend correlation with colonoscopy.
== END | disposition home or self-care (01) ==
LOC: RADCTMAIN 09:55
PROVIDERS: ATTEND Family Medicine
DX: R19.4 Change in bowel habit (principal)
CPT/HCPCS: 74177; Q9967

== ENCOUNTER 2020-02-15 09:29 | Day surgery (SDC) | payer BC ==
[2020-02-14 09:09] VITALS: BMI 21.7
[~2020-02-15 09:29] MED LIST changes: -GLUCAGON 1 MG/ML VIAL ONE; -LIDOCAINE 1% 20 ML VIAL (10MG/ML) FOR IV START INTRADERMA ONE; +MIDAZOLAM 2 MG/2 ML VIAL IV PRN; +ONDANSETRON 4 MG/2 ML VIAL IVP PRN; -PROPOFOL 10 MG/ML 20 ML VIAL IV ONE; +fentaNYL (PF) 50 MCG/ML 2 ML AMP IV PRN
[2020-02-15 10:43] VITALS: RESP 16; TEMP 97.2
[2020-02-15] MEDS ORDERED: LIDOCAINE 1% (10MG/ML) FOR IV START INTRADERMA ONE (10:46)
[2020-02-15] MEDS ORDERED: LIDOCAINE 1% INJ 10MG/ML (20 ML MDV) ONE (11:31)
[2020-02-15] MEDS ORDERED: PROPOFOL 10 MG/ML 20 ML VIAL IV ONE (11:31)
--- NOTE | 2020-02-15 12:04 | P.PCN ---
Date of Procedure: 02/15/20 Procedure(s) Performed: Brief history: Patient is a pleasant 64-year-old white female scheduled for an elective upper endoscopy as well as colonoscopy as a part of evaluation of abdominal pain, chronic Intermittent diarrhea and progressive weight loss of 30 pounds in the last 6 months duration. She had CT of abdomen and pelvis done that showed thickening of the rectum. She is hence scheduled for an upper endoscopy as well as colonoscopy to evaluate for Procedure performed: Esophagogastroduodenoscopy with biopsy Colonoscopy with biopsy Preoperative diagnosis: Chronic abdominal pain/progressive weight loss of 30 pounds 6 months duration Chronic intermittent diarrhea Anesthesia: MAC Procedure: After informed consent was obtained from the patient was brought into the endoscopy unit and IV sedation was administered by anesthesia under continuous monitoring. Initially upper endoscopy was done. The Olympus GF 160 video endoscope was inserted inserted into the mouth and esophagus intubated without any difficulty and was gradually advanced into the stomach and duodenum and carefully examined. The bulb and second part of the duodenum had mild duodenitis and biopsies were done from this area.. The scope was then withdrawn into the stomach adequately insufflated with air and upon careful examination the antrum and body, and fundus appeared normal. In the cardia of the stomach there were thickened mucosal folds identified which appeared slightly erythematous and biopsies were done from this area. The scope was then withdrawn into the esophagus. The GE junction was located at 40 cm to the incisors. It appeared regular with no erythema erosions or ulcerations. Rest of the esophagus appeared normal. Patient tolerated the procedure well. At this time the patient continued to remain sedation. Initial digital rectal examination was normal. Olympus CF 160 video colonoscope was then inserted into the rectum and gradually advanced to the cecum without any difficulty. Careful examination was performed as the scope was gradually being withdrawn. The prep was excellent. The cecum, ascending colon appeared normal. In the hepatic flexure there was a 3-4 mm polyp that was removed by cold biopsy. Rest of the, transverse colon, descending colon, sigmoid colon and rectum appeared normal. Random biopsies were done from ascending and descending colon to rule out microscopic/collagenous colitis. Retroflexion was performed in the rectum and no lesions were noted. Patient tolerated the procedure well. Impression: 1. Upper endoscopy revealed mild duodenitis and thickening of the gastric folds in the cardia of the stomach status post 2. colonoscopy revealed 3 millimeters hepatic flexure polyp status post removal by cold biopsy. Rest of the colon appeared normal. Recommendations: Findings of this examination were discussed with the patient as well as her family. She was advised to follow with the biopsy results. she'll be seen in office in one week from now.
[2020-02-15 12:29] VITALS: BP 111/71; PULSE 78
== END 2020-02-15 12:50 | disposition home or self-care (01) ==
LOC: ORWHC2ENDO 09:29
PROVIDERS: ATTEND Internal Medicine Gastroenterology
DX: D12.3 Benign neoplasm of transverse colon (principal); K52.9 Noninfective gastroenteritis and colitis, unspecified; K29.51 Unspecified chronic gastritis with bleeding; K63.89 Other specified diseases of intestine; K22.8 Other specified diseases of esophagus; K29.80 Duodenitis without bleeding; I10 Essential (primary) hypertension; E78.5 Hyperlipidemia, unspecified; M06.9 Rheumatoid arthritis, unspecified; G25.81 Restless legs syndrome; G43.909 Migraine, unspecified, not intractable, without status migrainosus; K21.9 Gastro-esophageal reflux disease without esophagitis; F41.9 Anxiety disorder, unspecified; Z79.899 Other long term (current) drug therapy; Z79.02 Long term (current) use of antithrombotics/antiplatelets; Z91.09 Other allergy status, other than to drugs and biological substances; Z88.6 Allergy status to analgesic agent; Z88.5 Allergy status to narcotic agent; Z86.73 Personal history of transient ischemic attack (TIA), and cerebral infarction without residual deficits; Z90.49 Acquired absence of other specified parts of digestive tract; Z98.890 Other specified postprocedural states; Z90.710 Acquired absence of both cervix and uterus; Z90.89 Acquired absence of other organs
CPT/HCPCS: 88305; 45380; 43239; J2001; J2704

== ENCOUNTER → 2020-04-18 | Outpatient (CLI) | payer BC ==
--- NOTE | 2020-04-18 10:48 | MR ---
EXAMINATION TYPE: MR pancreas wo/w con DATE OF EXAM: 04/18/2020 COMPARISON: CT abdomen and pelvis February 03, 2020 HISTORY: EPIGASTRIC PAIN CONTRAST: Standard multiplanar, multisequence MRI departmental protocol utilizing 5 mL intravenous Gadavist ciaran olinium contrast. Imaging performed of the abdomen focusing on the pancreas. FINDINGS: Pancreas: Pancreas overall normal in size. No concerning solid or cystic mass. No ductal dilatation i s evident. Underlying pancreatic divisum appears to be present as main pancreatic duct empties into d uodenum more cranial in position than CBD. No surrounding inflammatory change. Other: Lung bases are clear. Gallbladder unremarkable. No concerning renal mass or hydronephrosis. Sp feliberto within normal limits. No bowel dilatation. No intra-abdominal ascites. Levoconvex scoliosis cent ered at L1-L2 level with disc space narrowing, reactive endplate changes at L1-L2 level redemonstrate d. IMPRESSION: Underlying pancreatic divisum noted.
== END | disposition home or self-care (01) ==
LOC: RADMRIMAIN 07:24
PROVIDERS: ATTEND Internal Medicine Gastroenterology
DX: Q45.3 Other congenital malformations of pancreas and pancreatic duct (principal)
CPT/HCPCS: 74183; A9585

== ENCOUNTER → 2020-04-24 | Outpatient (CLI) | payer BC ==
[2020-04-24 14:07] VITALS: BP 129/84; PULSE 81; RESP 18; TEMP 98.2
--- NOTE | 2020-04-24 15:35 | P.HPOB ---
History of Present Illness H&P Date: 04/24/20 Chief Complaint: The patient is here for her routine gynecologic exam. This is a 64-year-old 013 with an LMP of 1987. She is status post RYDER/BSO for benign reasons in 1988. She has noticed some abnormal tissue at the vaginal opening that seems smaller than her fingertip. She states that looks more red than the surrounding vaginal tissue. She is also wondering if there are warts in this area. She denies any vaginal bleeding or pain. She has noticed that her urinary stream is no longer a simple straight stream but seems to gush in different directions. She has had significant unexplained weight loss and she feels she has lost about 40 pounds over the past 10 months. She has had a GI workup as well as CT scan of the abdomen and pelvis on 02/03/2020. This CT scan showed some thickening at the upper aspect of the rectum and colonoscopy was recommended. There was no pelvic mass and the bladder appeared normal. Colonoscopy was done on 02/15/2020 and there was a colonic polyp removed measuring 3-4 mm and this was benign. Various random colon Biopsies were also performed and were benign. Review of Systems She has lost about 25 pounds over the past 2 years. She states she did gain weight from her last visit here and then lost about 40 pounds since June of this year. She denies respiratory or cardiac problems. GI: She has been having problems including alternating constipation and diarrhea. She denies nausea and vomiting and states she is eating well. She has been experiencing night sweats. Past Medical History Past Medical History: CVA/TIA, Eye Disorder, GERD/Reflux, Hypertension, Osteoarthritis (OA), Rheumatoid Arthritis (RA) Additional Past Medical History / Comment(s): bleeding with stools intermittently,Vertigo, migraines,osteoporosis, L eye glaucoma, and restless leg syndrome,TIA-no residual. 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 History of endometriosis. History of Any Multi-Drug Resistant Organisms: None Reported Past Surgical History: Appendectomy, Hernia Repair, Hysterectomy, Orthopedic Surgery Additional Past Surgical History / Comment(s): L rotator cuff repair, hiatal hernia repair, multiple laparoscopic surgeries for ovarian cysts, colonoscopy 2019 (with upper endoscopy). RYDER in 1987 and BSO in 1988. Past Anesthesia/Blood Transfusion Reactions: No Reported Reaction Additional Past Anesthesia/Blood Transfusion Reaction / Comment(s): no hx blood transfusion Past Psychological History: Anxiety Additional Psychological History / Comment(s): Pt resides with her spouse. They have a dog. 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 She is independent. Smoking Status: Current some day smoker (She states she infrequently smokes cigarettes socially less than one pack per week.) Past Alcohol Use History: Rare (0-2 per week) Additional Past Alcohol Use History / Comment(s): Pt started smoking in 1971 and quit in 1986,1ppd. Now smokes socially. Past Drug Use History: None Reported Additional History: She is been since 2016 and this is her third marriage. She works at [employer]. - Past Family History Mother Family Medical History: Cancer Additional Family Medical History / Comment(s): Leukemia. Brother(s) Family Medical History: Cancer Additional Family Medical History / Comment(s): Colon cancer. Father Family Medical History: COPD Additional Family Medical History / Comment(s): Parkinson's disease. Paternal grandmother had breast cancer. Medications and Allergies Home Medications Medication Instructions Recorded Confirmed Type traZODone HCL [Desyrel] 100 mg PO HS 08/11/14 04/24/20 History Gabapentin 600 mg PO HS PRN 02/25/16 04/24/20 History Travoprost [Travatan Z 0.004%] 1 drop LEFT EYE HS 02/25/16 04/24/20 History cycloSPORINE 0.05% OPHTH SOLN 1 drop BOTH EYES BID 02/25/16 04/24/20 History [Restasis] DULoxetine HCL [Cymbalta] 90 mg PO BID 01/13/18 04/24/20 History Famotidine [Pepcid] 40 mg PO HS 01/13/18 04/24/20 History Ipratropium [place] 0.06%Nasal 1 spray EA NOSTRIL DAILY 01/13/18 04/24/20 History [Atrovent Nasal 0.06%] Clopidogrel [Plavix] 75 mg PO DAILY 02/09/18 04/24/20 History carvediloL [Coreg] 6.25 mg PO BID 07/27/18 04/24/20 History lisinopriL [Zestril] 40 mg PO QAM 07/27/18 04/24/20 History Ascorbic Acid [Vitamin C] 500 mg PO DAILY 02/14/20 04/24/20 History Atorvastatin Calcium [Lipitor] 20 mg PO HS 02/14/20 04/24/20 History Calcium/Magnesium/Zinc 1 each PO DAILY 02/14/20 04/24/20 History [Krdvsgo-Qgaoyvheb-Yhsc Tablet] Cevimeline HCl [Evoxac] 30 mg PO DAILY 02/14/20 04/24/20 History Dicyclomine HCl 10 mg PO TID PRN 02/14/20 04/24/20 History Vitamin B Complex 1 each PO DAILY 02/14/20 04/24/20 History amLODIPine BESYLATE 5 mg PO QAM 02/14/20 04/24/20 History Allergies Allergy/AdvReac Type Severity Reaction Status Date / Time adhesive tape Allergy peels skin Verified 04/24/20 14:01 off, bruises aspirin [From Percodan] Allergy Dyspnea Verified 04/24/20 14:01 oxycodone HCl [From Percodan] Allergy Dyspnea Verified 04/24/20 14:01 oxycodone terephthalate Allergy Dyspnea Verified 04/24/20 14:01 [From Percodan] Exam Vital Signs Temp Pulse Resp BP Pulse Ox 04/24/20 14:02 98.2 F 81 18 129/84 97 Intake and Output 04/24/20 04/24/20 04/24/20 06:59 14:59 22:59 Other: Weight 49.895 kg Height 5 feet 0 inches, weight 110 pounds, BMI 21.5. This is a well-developed well-nourished white female who is alert and oriented times 3 in no acute distress. HEENT: Within normal limits. NECK: Supple without mass or thyromegaly. CHEST AND LUNGS: Clear to auscultation. HEART: Regular rate and rhythm. BREASTS: Are without mass or discharge. AXILLARY EXAM: Negative for adenopathy. BACK: Negative for CVA tenderness. ABDOMEN: Soft, nontender, without palpable masses. PELVIC EXAM: External genitalia appears normal with moderate atrophy. Upon spreading the labia, there is some irregular tissue at the urethral opening that is redder than the surrounding vaginal mucosa. There are approximately 3 polypoid mucosal flaps each measuring approximately 3 mm at the urethral opening. These appear soft and the area is minimally tender. There is no blood or abnormal discharge noted at the urethral opening. Adjacent to the urethral opening is some of the hymenal ring are remnant which appears benign and within normal limits. Vagina appears normal with moderate atrophy. There is a minimal cystocele, grade 1. Bimanual examination is negative for mass or tenderness. RECTAL EXAM: Rectovaginal exam is negative for mass or tenderness and is negative for occult blood. EXTREMITIES: Nontender. IMPRESSION: 1. 64-year-old menopausal female status post RYDER/BSO with irregular tissue at the urethral opening causing disruption of the urinary stream. Differential diagnosis will include urethral polyps, urethral prolapse or other urethral neoplasm. 2. Unexplained weight loss and she is currently undergoing a GI workup for this. I doubt this is related to any gynecologic problems but it is possible that it may be related to the urologic finding above. 3. History of osteoporosis which has been managed by her PCP. 4. Minimal stable grade 1 cystocele. I do not believe this is directly related to the small tissue that she sees at the vaginal opening. PLAN: 1. Pap smears have been discontinued. 2. Self breast awareness was discussed with the patient. 3. Mammogram will be due in October 2020. The order slip was given to the patient for this. 4. I will be referring the patient to [facility], Drs. Delgadillo,Josefina, and Parminder, for further evaluation of her abnormal urinary stream and abnormal tissue at the urethral opening. 5. She was advised to return in one year for her annual well woman exam.
== END | disposition home or self-care (01) ==
LOC: WWCWWP 13:53
PROVIDERS: ATTEND Obstetrics & Gynecology
DX: Z53.9 Procedure and treatment not carried out, unspecified reason (principal)

== ENCOUNTER → 2020-06-11 | Outpatient (CLI) | payer BC ==
--- NOTE | 2020-06-11 11:42 | MR ---
EXAMINATION TYPE: MR brain wo/w con DATE OF EXAM: 06/11/2020 COMPARISON: CT brain 06/06/2018, MR brain 04/04/2017, CT 02/06/2010 HISTORY: Dhruv weakness TECHNIQUE: Multiplanar, multisequence images of the brain and brainstem is performed without and with IV contras t, utilizing 6 mL intravenous Gadavist . FINDINGS: Diffusion weighted images demonstrate no evidence of a recent infarct or other diffusion ab normality. There is no extra-axial fluid collection or significant change in white matter signal abn ormality. The ventricular system and cisternal spaces are normal in size and appearance. The brain volume is age appropriate. Midline structures demonstrate normal morphology. The craniocervical junction appears within normal limits. Post contrast images demonstrate no abnormal enhancement. The dural venous sinuses appear pa tent. The visualized sinuses are remarkable for mucoperiosteal thickening ethmoid air cells, and the globes are intact. Focal lucency within the calvarium seen on prior CT scans shows corresponding area of enhancement, focal calvarial defect, coronal image #21, axial image #17, post contrast axial imag e 18 nonaggressive appearance and measures 15 mm in AP dimension by 5 mm in transverse dimension. IMPRESSION: Findings are essentially stable. Indeterminate calvarial lesion is chronic dating to 2009 . Nonspecific white matter demyelination is mild. Mild sinus disease.
== END | disposition home or self-care (01) ==
LOC: RADMRIMAIN 07:30
PROVIDERS: ATTEND Psychiatry & Neurology Neurology
DX: G37.8 Other specified demyelinating diseases of central nervous system (principal)
CPT/HCPCS: 70553; A9585

== ENCOUNTER → 2022-01-27 | Outpatient (CLI) | payer BC ==
--- NOTE | 2022-01-27 12:13 | MR ---
EXAMINATION TYPE: MR lumbar spine wo con DATE OF EXAM: 01/27/2022 COMPARISON: CT abdomen pelvis 02/03/2020. HISTORY: Low back pain TECHNIQUE: Multiplanar, multisequence images of the lumbar spine were acquired without IV contrast. FINDINGS: Lumbar segments are intact. No paraspinal masses are identified. Conus medullaris has a normal appe arance. Sacral Tarlov cysts identified. Levocurvature of the thoracolumbar spine. Mild retrolisthesis of L1 and L2. Type I Modic changes involving the superior endplate of L1 and inferior endplate of T1 2. There is associated increased STIR signal. Multilevel disc desiccation is present most pronounced at T12-L1 and L1-L2. T12-L1: No herniation, protrusion or disc bulging. No canal stenosis is present. Mild right neural f oraminal stenosis. The left neural foramen is maintained. Facet arthropathy and ligament of flavum bu ckling demonstrated. L1-L2: Posterior disc osteophyte complex with mild effacement of the anterior thecal sac. Mild retrol isthesis at L1-L2. There is facet arthropathy and ligamentum flavum buckling. Moderate left and sever e right neural foraminal stenosis. L2-L3: No herniation, protrusion or disc bulging. No canal stenosis is present. Foramina are patent bilaterally. Facet arthropathy and ligament of flavum buckling demonstrated. L3-L4: No herniation, protrusion or disc bulging. No canal stenosis is present. Foramina are patent bilaterally. Facet arthropathy and ligament flavum buckling demonstrated. L4-L5: No herniation, protrusion or disc bulging. No canal stenosis is present. Foramina are patent bilaterally. Facet arthropathy and ligamentum flavum buckling demonstrated L5-S1: Broad-based disc bulge without significant spinal canal stenosis. There is facet hypertrophy a nd ligamentum flavum buckling identified. Moderate to severe left neural foraminal stenosis. The righ t neural foramen is patent. IMPRESSION: Mild to moderate degenerative disc disease as described above. This is most pronounced at L1-L2 and L 5-S1.
== END | disposition home or self-care (01) ==
LOC: RADMRIMAIN 11:05
PROVIDERS: ATTEND Family Medicine
DX: M54.30 Sciatica, unspecified side (principal)
CPT/HCPCS: 72148

== ENCOUNTER → 2022-01-29 | Outpatient (CLI) | payer BC ==
[2022-01-29 08:26] VITALS: BP 137/66; PULSE 60; RESP 18; TEMP 98.6
--- NOTE | 2022-01-29 13:45 | P.PAINPG ---
PQRS Measure Charge Sheet Comment: HISTORY OF PRESENT ILLNESS: 66 yr old female w at side as a referral from Dr Pili Caldwell presents today w severe and chronic LBP secondary to DDD and facet arthropathy without myelopathy for evaluation. Pt states her pain level is currently at 6/10 in intensity, constant, achy in character, localized in the R hip w shooting towards buttocks. Pain is provoked w any activity throuhout the day. Pain is alleviated w PT in Dec 2021 x 6 wks, chiropractic treatments as needed, heat, ice, meds (Celebrex, Tylenol, Neurontin), topiocals, repositioning and rest. PMH: CVA, L Glaucoma, GERD, Hypertension, OA, RA, RLS, Anxiety PSH: Appendectomy, Hernia Repair, Hysterectomy, L RCT Repair, HH Repair, Ovarian Cyst Laparoscopies, Colonoscopy (2019), RYDER (1987), BSO (1988) SH: +Tobacco use, Rare ETOH use, No illicit drug use. 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 and resides w spouse. FH: Mo- Leukemia. Fa- COPD/ Parkinson's Disease. Brother- Colon CA. PGM- Breast CA. All: See list Meds: See list REVIEW OF ORGAN SYSTEMS: CONSTITUTIONAL: No fevers or chills. No recent weight loss. NEUROLOGICAL: + numbness and tingling along the distal extremities. No seizure disorders or headaches. MUSCULOSKELETAL: + pain PSYCHIATRIC: Denies current depression or suicidal thoughts. Physical Examinations : Constitutional : Cooperative , not in acute distress . Neurologic : Cranial nerve II to XII intact. No focal neurological deficits. Psychiatric : alert & oriented x 3. Matching mood & appropriate affect. Judgment & insight intact. Musculoskeletal : Cervical Spine Motor strength in the deltoid and biceps: Normal right side. Normal Left side Motor strength biceps and the wrist extensors: Normal right side . Normal left side Motor strength in the triceps muscle: Normal right side. Normal left side Deep tendon reflexes: Normal at the biceps. Normal at Brachioradialis. Normal at triceps Vertebral body tenderness to deep palpation over Cervical facet loading test: positive bilaterally Spurling test: positive bilaterally Neck distraction test: positive bilaterally Jessica sign: positive bilaterally Lumbar spine Motor strength lower extremities ,thigh and legs 5/5 Right side , 5/5 Left side Deep tendon reflexes : Normal Knee Jerk. Normal Ankle Jerk Vertebral body tenderness over L1 Lumbar facet Loading Test: positive Right / positive Left Range of motion of the lumbar spine Flexion 30 degrees, extension 10 degrees Straight Leg Raise test: Left/ Right positive at degree Nehemiah test: positive right / positive left. Severe tenderness over the Sacroiliac joint on the Right / Left sides Gaenslen test: positive bilaterally Seated flexion test: positive bilaterally. Sacral spine : Severe tenderness over the Sacroiliac joint: right side / left side Range of motion: Flexion of the lumbar spine <60 degrees Range of motion: Extension of the lumbar spine <20 degrees Gaenslen's Test positive Kieran's Test positive Nehemiah test: positive right side / left side Thigh Thrust Test Sacral Thrust Test Imaging: MRI without contrast of the lumbar spine from 01/27/22 reviewed Assessment/ Plan : Lumbar DDD, Lumbar spondylosis Recommendation of NEIDA L1-L2. May need a series of injections, up to 3 within a 6 mo period, for optimal pain relief. Risks, benefits of procedure discussed and patient verbalized understanding. Admits aspirin or anti- coagulant use or medical history of diabetes. Protocol for discontinuation/ continuation of medications robert procedure discussed. All questions answered. I have spent greater than 30 minutes on patient care today. Dr Diaz was available by phone for the evaluation of this patient. The time was used to review the medical records including relevant urine studies and Prescription history (MAPs), review of the available imaging, evaluation and examination of the patient, coordination of care with the medical staff and if applicable referring physicians, as well as creation of the medical record - Pain Location Lower Back Non-Pharmacological Interventions: Chiropractic Treatment, Heat, Ice, Physical Therapy Pharmacological Interventions: Medication, PRN Medication, Scheduled Medication, Topical Medication PQRS Narrative: Smoking Status Former smoker Pain Intensity [Lower Back] 7 Hx Alcohol Use (MH) Yes Home Medications: Ambulatory Orders Travoprost [Travatan Z 0.004%] 1 drop LEFT EYE HS 02/25/16 cycloSPORINE 0.05% OPHTH SOLN [Restasis] 1 drop BOTH EYES BID 02/25/16 Famotidine [Pepcid] 40 mg PO QAM 01/13/18 Ipratropium [place] 0.06%Nasal [Atrovent Nasal 0.06%] 1 spray EA NOSTRIL DAILY 01/13/18 Clopidogrel [Plavix] 75 mg PO DAILY 02/09/18 carvediloL [Coreg] 6.25 mg PO BID 07/27/18 lisinopriL [Zestril] 40 mg PO QAM 07/27/18 Ascorbic Acid [Vitamin C] 500 mg PO DAILY 02/14/20 Atorvastatin Calcium [Lipitor] 20 mg PO HS 02/14/20 amLODIPine BESYLATE 5 mg PO QAM 02/14/20 ARIPiprazole 2 mg PO QAM 01/27/22 Celecoxib [CeleBREX] 200 mg PO DAILY 01/27/22 DULoxetine HCL [Cymbalta] 90 mg PO DAILY 01/27/22 Gabapentin [Neurontin] 800 mg PO TID PRN 01/27/22 traZODone HCL [Trazodone HCl] 100 mg PO HS 01/27/22 Controlled Substance Measures - Controlled Substance Measures Is patient prescribed a controlled substance at discharge?: No
== END | disposition home or self-care (01) ==
LOC: PNWHC3 07:39
PROVIDERS: ATTEND Specialist
DX: M54.30 Sciatica, unspecified side (principal)
CPT/HCPCS: 99211

== ENCOUNTER → 2022-02-10 | Outpatient (CLI) | payer BC ==
--- NOTE | 2022-02-11 10:06 | MM ---
Reason for Exam: Screening (asymptomatic). Last mammogram was performed 2 year(s) and 3 month(s) ago. Patient History: Menarche at age 18. First Full-Term at age 20. Left ovary removed at age 32. Right ovary removed at age 32. Hysterectomy at age 32. Postmenopausal. Estrogen for 2 years from age 32 until age 34. Maternal grandmother had breast cancer, age 60. Risk Values: Munira 5 year model risk: 1.1%. NCI Lifetime model risk: 4.2%. Prior Study Comparison: 12/16/2016 Bilateral Screening Mammogram, [facility]. 02/09/2018 Bilateral Screening Mammogram, [facility]. 11/18/2019 Bilateral Screening Mammogram, [facility]. Tissue Density: There are scattered fibroglandular densities. Findings: Analyzed By CAD. There is no suspicious group of microcalcifications or new suspicious mass in either breast. Overall Assessment: Negative, BI-RAD 1 Management: Screening Mammogram of both breasts in 1 year. 1. Patient should continue monthly self breast exams. 2. A clinical breast exam by your physician is recommended on an annual basis. 3. This exam should not preclude additional follow-up of suspicious palpable abnormalities. Electronically signed and approved by: Hallie Gonzales M.D. Radiologist
== END | disposition home or self-care (01) ==
LOC: RADMAMWWP 15:41
PROVIDERS: ATTEND Family Medicine
DX: Z12.31 Encounter for screening mammogram for malignant neoplasm of breast (principal); Z80.3 Family history of malignant neoplasm of breast
CPT/HCPCS: 77063; 77067

== ENCOUNTER 2022-03-04 07:15 | Day surgery (SDC) | payer BC ==
[2022-02-27 12:27] VITALS: BMI 22.6
[~2022-03-04 07:15] MED LIST changes: -MIDAZOLAM 2 MG/2 ML VIAL IV PRN; -ONDANSETRON 4 MG/2 ML VIAL IVP PRN; -fentaNYL (PF) 50 MCG/ML 2 ML AMP IV PRN
[2022-03-04 07:58] VITALS: TEMP 96.9
[2022-03-04] MEDS ORDERED: LIDOCAINE 1% (10MG/ML) FOR IV START INTRADERMA ONE (08:01)
[2022-03-04] MEDS ORDERED: fentaNYL (PF) 50 MCG/ML 2 ML AMP ONE (08:09)
[2022-03-04] MEDS ORDERED: methylPREDNISolone ACETATE 40 MG/ML 1 ML VIAL ONE (08:09)
[2022-03-04] MEDS ORDERED: MIDAZOLAM 2 MG/2 ML VIAL ONE (08:09)
[2022-03-04] MEDS ORDERED: IOPAMIDOL M200 10 ML VIAL ONE (08:09)
--- NOTE | 2022-03-04 08:19 | P.PCN ---
Date of Procedure: 03/04/22 Description of Procedure: PREOPERATIVE DIAGNOSIS: lumbar radiculopathy POSTOPERATIVE DIAGNOSIS: Lumbar radiculopathy PROCEDURE 1. Lumbar epidural steroid injection under fluoroscopic guidance at the L1-L2 level. 2. Lumbar epidurogram. Imaging: Fluoroscopy was used, images where saved to the medical record ANESTHESIA: Medication Administered by: Nurse Sedation Type: Moderate sedation requested by patient Sedation Supervision start time: 809 Sedation Supervision end time: 819 EBL: Minimal PROCEDURE INDICATION: The patient with low back pain and radiculitis symptoms u nresponsive to conservative treatment. Fluoroscopy was used to optimize visualization of the needle placement and to maximize safety. PROCEDURE DESCRIPTION / TECHNIQUE: The patient was seen and identified in the preoperative area. Risks, benefits, complications including but not limited to infections ,bleeding ,allergic reaction to the medications, nerve damage and incomplete pain relief , as well as alternatives to the procedure were discussed with the patient. The patient agreed to proceed with the procedure and signed the consent. IV was started, and vital signs were stable. Patient was taken to the OR and time out was completed. The patient was placed in the prone position on procedure table and a pillow was placed under the abdomen to reduce lumbar lordosis. The lumbosacral area was prepped and draped in the usual sterile fashion. Vitals were closely monitored during the procedure. Using anterior-posterior fluoroscopy, the L 12 interlaminar space was identified and the skin over this site was marked and then infiltrated with 1% lidocaine subcutaneously. Subsequently, a 20-gauge Tuohy epidural needle was inserted and advanced toward the epidural space using the Loss of resistance technique and guided by AP and lateral fluoroscopy. The correct needle position in the epidural space was verified with the injection of 1 mL of Omnipaque 180 contrast to observe an acceptable epidurogram, after negative aspiration for blood and CSF and in the absence of paresthesias. Again after negative aspiration, a 3 ml mixture containing 40mg of depomedrol and 2 ml of preservative free Normal Saline was injected and a washout of epidurogram was seen. Needle was withdrawn intact, skin was cleansed, and bandages were applied. COMPLICATIONS: None DISPOSITION / PLANS: The patient was placed in a supine position and transferred to the recovery area in a stable condition for observation. There was no evide nce of lower extremity motor or sensory deficit after the procedure. Patient was discharged from the recovery room after meeting discharge criteria. Home discharge instructions were given to the patient by the staff. The patient was reexamined prior to discharge. The patient will follow up as directed.
[2022-03-04] MEDS ORDERED: IV FLUID CONTINUATION 1,000 ML IV ONE (08:22)
[2022-03-04 08:25] VITALS: BP 116/74; PULSE 63; RESP 16
--- NOTE | 2022-03-04 10:04 | FL ---
Intraoperative/procedural fluoroscopic services were provided for lumbar epidural injection. Total fl uoroscopy time is 5 seconds with a total of 1 submitted image to PACS. Please see the operative note for further details.
== END 2022-03-04 08:52 | disposition home or self-care (01) ==
LOC: ORPAIN 07:15
PROVIDERS: ATTEND Hospitalist
DX: M54.16 Radiculopathy, lumbar region (principal)
CPT/HCPCS: 99152; 62323; J2250; J1030; J3010; Q9966

== ENCOUNTER → 2022-03-24 | Outpatient (CLI) | payer BC ==
[2022-03-24 08:10] VITALS: BP 128/77; PULSE 71; RESP 18; TEMP 98.5
--- NOTE | 2022-03-24 15:34 | P.PAINPG ---
Objective - Vital Signs Vital signs: Intake & Output 03/23/22 03/24/22 03/24/22 18:59 06:59 18:59 Weight 51.256 kg PQRS Measure Charge Sheet Comment: A 66 yr old female with a history of severe and chronic low back pain secondary to lumbar DDD and spondylosis with facet arthropathy without myelopathy presents today for evaluation s/p NEIDA L1-L2. Pt states she experienced >50 % pain relief x 3 wks s/p procedure. Pain level is currently at 6 /10 in intensity, constant, localized in abdias lower lumbar spine, achy in character w shooting towards BL hips and occasionally down RLE. Pain is provoked by walking/ climbing stairs/ standing for periods of 15 min or more. Pain is alleviated with PT x 4 wks in Dec 2021, chiropractic treatments as needed, last in Dec 2021, heat, ice, meds (Neurontin, Tylenol), reclining and rest. Interventional pain procedures completed include NEIDA L1-L2 Patient is currently on Neurontin, Tylenol Patient denies any side effects of the medication(s), denies excessive drowsiness or sleepiness, denies suicidal ideation and reports that the current pain medication is helping to control the pain and improve activities of daily living. Patient denies any motor or sensory deficits. Patient denies any fever or night sweats, denies any change in the bowel movements or urination. Physical Examination: -Constitutional: Cooperative. Not in acute distress . - Neurologic: Cranial nerve II to XII intact. No focal neurological defic its. - Psychatric: Alert & oriented x 3. Matching mood & appropriate affect. Judgment and insight intact. - Musculoskeletal: Cervical spine: Muscle bulk/ tone/ strength in the bilateral upper extremities normal Vertebral body tenderness to palpation over Spurling test positive Distraction test positive Facet loading test positive Thoracic spine Muscle bulk / tone/ strength in the bilateral paraspinal muscles normal Vertebral body tender to palpation over Facet loading test positive Lumbar spine: Motor bulk/ tone/ strength lower extremities , thigh and legs : 5/5 Deep tendon reflexes : Normal Knee Jerk. Normal Ankle Jerk . Vertebral body tenderness to palpation over Lumbar Facet Loading Test positive TTP over BL L1-L2, L2-L3 facets, R>L Straight Leg Raise: positive at 30 degrees right side/ left side Gaenslen's Test positive Sacral spine : Severe tenderness over the Sacroiliac joint: right side / left side Range of motion: Flexion of the lumbar spine <60 degrees Range of motion: Extension of the lumbar spine <20 degrees Gaenslen's Test positive Nehemiah test: positive right side / left side Thigh Thrust Test Sacral Thrust Test Assessment and plan: Chronic low back pain secondary to lumbar degenerative disc disease, spondylosis with facet arthropathy without myelopathy Recommendation of BL facet block of the medial branches L1-l2, l=L2-L3 #1. May need a series of injections, up until RFA, for optimal pain relief. Risks, benefits of procedure discussed and pt verbalized understanding. Admits to anticoagulant use or medical history of diabetes. Protocol for discontinuation/ continuation of medications robert procedure discussed. All patient questions answered I have spent less than 30 minutes on patient care today. Dr Diaz was available by phone for the evaluation of this patient. The time was used to review the medical records including relevant urine studies and Prescription history (MAPs), review of the available imaging, evaluation and examination of the patient, coordination of care with the medical staff and if applicable referring physicians, as well as creation of the medical record PQRS Narrative: Smoking Status Former smoker Hx Alcohol Use (MH) Yes: SOCIALLY Home Medications: Ambulatory Orders Travoprost [Travatan Z 0.004%] 1 drop LEFT EYE HS 02/25/16 cycloSPORINE 0.05% OPHTH SOLN [Restasis] 1 drop BOTH EYES BID 02/25/16 Famotidine [Pepcid] 40 mg PO QAM 01/13/18 Ipratropium [place] 0.06%Nasal [Atrovent Nasal 0.06%] 1 spray EA NOSTRIL DAILY 01/13/18 Clopidogrel [Plavix] 75 mg PO DAILY 02/09/18 carvediloL [Coreg] 6.25 mg PO BID 07/27/18 lisinopriL [Zestril] 40 mg PO QAM 07/27/18 Ascorbic Acid [Vitamin C] 500 mg PO DAILY 02/14/20 Atorvastatin Calcium [Lipitor] 20 mg PO HS 02/14/20 amLODIPine BESYLATE 5 mg PO QAM 02/14/20 ARIPiprazole 2 mg PO QAM 01/27/22 Celecoxib [CeleBREX] 200 mg PO DAILY 01/27/22 DULoxetine HCL [Cymbalta] 90 mg PO DAILY 01/27/22 Gabapentin [Neurontin] 800 mg PO TID PRN 01/27/22 traZODone HCL [Trazodone HCl] 100 mg PO HS 01/27/22 Controlled Substance Measures - Controlled Substance Measures Is patient prescribed a controlled substance at discharge?: No
== END ==
LOC: PNWHC3 07:36
PROVIDERS: ATTEND Specialist
DX: M47.816 Spondylosis without myelopathy or radiculopathy, lumbar region (principal); M51.36 Other intervertebral disc degeneration, lumbar region; G89.29 Other chronic pain; Z91.048 Other nonmedicinal substance allergy status; Z88.6 Allergy status to analgesic agent; Z88.5 Allergy status to narcotic agent; Z87.891 Personal history of nicotine dependence
CPT/HCPCS: 99211

== ENCOUNTER 2022-04-25 06:32 | Day surgery (SDC) | payer BC ==
[2022-04-22 15:28] VITALS: BMI 22.6
[2022-04-25 06:57] VITALS: TEMP 97.9
[2022-04-25] MEDS ORDERED: LACTATED RINGERS 1,000 ML IV ONE (07:10)
[2022-04-25 07:20] LABS: Glucose,Whole Blood 110 mg/dL (70-110)
[2022-04-25] MEDS ORDERED: ROPIVACAINE 5 MG/ML 20 ML AMPULE ONE (07:29)
[2022-04-25] MEDS ORDERED: MIDAZOLAM 2 MG/2 ML VIAL ONE (07:29)
[2022-04-25] MEDS ORDERED: TRIAMCINOLONE ACETONIDE 40 MG/ML 1 ML VIAL ONE (07:29)
[2022-04-25] MEDS ORDERED: LACTATED RINGERS 1,000 ML IV SCH (07:30)
--- NOTE | 2022-04-25 07:30 | P.PCN ---
Date of Procedure: 04/25/22 Description of Procedure: DESCRIPTION OF PROCEDURE(S): PROCEDURE: Bilateral lumbar medial branch block L1-L2, L2-L3 with fluoroscopy PREOPERATIVE DIAGNOSIS : 1- Lumbar spondylosis with Facet Arthropathy without myelopathy . 2- Lumber degenerative disc disease POSTOPERATIVE DIAGNOSIS: 1- Lumbar spondylosis with Facet Arthropathy without myelopathy . 2- Lumber degenerative disc disease PROCEDURE: Diagnostic bilateral L1-L2, L2-3 medial branch block under fluoroscopy ANESTHESIA: IV sedation with Versed 2 mg COMPLICATION: None. IV FLUIDS: 100 mL of normal saline. PROCEDURE INDICATION: Chronic low back pain secondary to Facet arthropathy unresponsive to conservative treatment. PROCEDURE DESCRIPTION: the patient was seen and identified in the preop holding area , risks and benefits and possible complications of the procedure and alternative were discussed with the patient, and the patient agreed to proceed with the procedure and signed the consent IV was started and vital signs monitored during the procedure and fluoroscopy was used to maximize the benefit and accuracy of the needle placement, and sedation was given to decrease patient anxiety, patient was taken to the procedure room and placed in prone position vital signs monitored in the back prepped with chlorhexidine X3 then under strict sterile technique using a right oblique fluoroscopy ,the junction of the transverse process and the superior articulating process of the right L1-L2, L2-3 vertebra which corresponding to the fluoroscopy image of the eye of the Derek dog on the block side for the medial branches and subsequently , a 25-gauge Quincke-type needle was used and each time placed at the junction of the base of the transverse process and the superior articular process at the appropriate level L1, L2, L3 pedicle. The needle was advanced until the periosteum contacted, needle placement confirmed with AP oblique and lateral view and after appropriate needle placement confirmed, and after negative aspiration for heme and CSF and there was no paresthesia 1-1/2 mL of ropivacaine 0.5% mixed with 40 mg Kenalog , then half mL injected at each level after negative aspiration the needle subsequently removed and the same procedure repeated for the left side at left side at L1-2, L2-3 levels. At the end of the procedure and the needles removed and a bandage applied after the skin was cleaned the cleaning solution patient taken to recovery room in stable condition and monitors in the recovery room for 20-30 minutes and discharged home in stable condition after discharge criteria met and patient will return for repeat procedure in 2-4 weeks.
[2022-04-25] MEDS ORDERED: IV FLUID CONTINUATION 500 ML IV ONE (07:49)
[2022-04-25 07:53] VITALS: RESP 14
[2022-04-25 08:20] VITALS: BP 97/61; PULSE 67
== END 2022-04-25 08:31 | disposition home or self-care (01) ==
LOC: ORPAIN 06:32
PROVIDERS: ATTEND Anesthesiology
DX: M51.16 Intervertebral disc disorders with radiculopathy, lumbar region (principal); M47.26 Other spondylosis with radiculopathy, lumbar region; G89.29 Other chronic pain; I10 Essential (primary) hypertension; E78.5 Hyperlipidemia, unspecified; F17.200 Nicotine dependence, unspecified, uncomplicated; M06.9 Rheumatoid arthritis, unspecified; G25.81 Restless legs syndrome; K21.9 Gastro-esophageal reflux disease without esophagitis; G45.9 Transient cerebral ischemic attack, unspecified; Z88.6 Allergy status to analgesic agent; Z88.5 Allergy status to narcotic agent; Z79.899 Other long term (current) drug therapy; Z79.02 Long term (current) use of antithrombotics/antiplatelets
CPT/HCPCS: 64494 ×2; 64493; J2250; J3301; J2795

== ENCOUNTER → 2022-04-29 | Outpatient (CLI) | payer BC ==
--- NOTE | 2022-04-25 08:07 | FL ---
Intraoperative/procedural fluoroscopic services were provided for bilateral lumbar facet block. Total fluoroscopy time is 15 seconds with a total of 3 submitted images to PACS. Please see the operative note for further details.
--- NOTE | 2022-04-29 08:08 | CTL ---
EXAMINATION TYPE: CT Low Dose Lung DATE OF EXAM ORDERED: 04/29/2022 HISTORY: Z87.891 Personal hx of nicotine dependence. Lung cancer screening CT DLP: 59.[address] CTDI: 1.7 mGy Automated exposure control for dose reduction was used. SCREENING VISIT: The first COMPARISON: CT chest 01/12/2020 TECHNIQUE: Low dose computed tomography scan was performed through the chest at 1 mm thick sections a nd reconstructed images in multiple planes at 1 mm and [address] DIAGNOSTIC QUALITY: Satisfactory FINDINGS: LUNG NODULES: No clinically significant pulmonary nodules. LUNGS: COPD: Severity: Mild Fibrosis: Severity: None Lymph nodes: None Other findings: None RIGHT PLEURAL SPACE: Effusion: None Calcification: None Thickening: Mild Pneumothorax: None LEFT PLEURAL SPACE: Effusion: None Calcification: None Thickening: Mild Pneumothorax: None HEART: Heart Size: Normal Coronary Calcification: None Pericardial Effusion: None OTHER FINDINGS: Upper abdomen: Postsurgical changes at the GE junction. Bony thorax: No acute osseous abnormality. Multilevel degenerative disc disease. Supraclavicular region: None Other: None IMPRESSION: No clinically significant pulmonary nodules. CT LUNG RAD AND CT CHEST RECOMMENDATION: Lung-Rad 1 Negative: Continue annual screening with LDCT in 12 months. S Modifier (other clinically significant findings): None
== END | disposition home or self-care (01) ==
LOC: RADCTMAIN 07:06
PROVIDERS: ATTEND Family Medicine
DX: Z12.2 Encounter for screening for malignant neoplasm of respiratory organs (principal); Z87.891 Personal history of nicotine dependence
CPT/HCPCS: 71271

== ENCOUNTER → 2022-05-19 | Outpatient (CLI) | payer BC ==
[2022-05-19 09:20] VITALS: BP 121/75; PULSE 60; RESP 18
--- NOTE | 2022-05-19 14:31 | P.PAINPG ---
PQRS Measure Charge Sheet Comment: A 66 yr old female with a history of severe and chronic LBP secondary to lumbar DDD and spondylosis with facet arthropathy without myelopathy presents today for evaluation s/p BL facet block of the medial branches L1-L2, L2-L3 #1. Pt states she experienced 80% pain relief x 4 days s/p procedure. Pain level is provoked at 10 /10 in intensity, constant, localized in the lumbar spine, achy in character w shooting towards the BLEs. Pain is provoked by standing for periods of 20 min or more . Pain is alleviated with PT x wks in Nov 2021, massage therapy in 2021, chiropractic treatments in 2021, home exercise regimen, heat, ice, medications (Neurontin, Tyl OTC), Lidoderm, repositioning and rest. Interventional pain procedures completed include BL MBB L1-L2, L2-L3 x1 Patient is currently on Neurontin, Tyl OTC Patient denies any side effects of the medication(s), denies excessive drowsiness or sleepiness, denies suicidal ideation and reports that the current pain medication is helping to control the pain and improve activities of daily living. Patient denies any motor or sensory deficits. Patient denies any fever or night sweats, denies any change in the bowel movements or urination. Physical Examination: -Constitutional: Cooperative. Not in acute distress . - Neurologic: Cranial nerve II to XII intact. No focal neurological deficits. - Psychatric: Alert & oriented x 3. Matching mood & appropriate affect. Judgment and insight intact. - Musculoskeletal: Cervical spine: Muscle bulk/ tone/ strength in the bilateral upper extremities normal Vertebral body tenderness to palpation over Spurling test positive Distraction test positive Facet loading test positive Thoracic spine Muscle bulk / tone/ strength in the bilateral paraspinal muscles normal Vertebral body tender to palpation over Facet loading test positive Lumbar spine: Motor bulk/ tone/ strength lower extremities , thigh and legs : 5/5 Deep tendon reflexes : Normal Knee Jerk. Normal Ankle Jerk . Vertebral body tenderness to palpation over Lumbar Facet Loading Test positive TTP over BL L1-L2, L2-L3 facets Straight Leg Raise: positive at 30 degrees right side/ left side Gaenslen's Test positive Sacral spine : Severe tenderness over the Sacroiliac joint: right side / left side Range of motion: Flexion of the lumbar spine <60 degrees Range of motion: Extension of the lumbar spine <20 degrees Gaenslen's Test positive Nehemiah test: positive right side / left side Thigh Thrust Test Sacral Thrust Test Assessment and plan: Chronic LBP secondary to lumbar DDD, spondylosis with facet arthropathy without myelopathy Recommendation of BL facet block of the medial branches L1-L2, L2-L3 #1. May need a series of injections, up until RFA, for optimal pain relief. Risks, benefits of procedure discussed and pt verbalized understanding. Admits to anticoagulant use or medical history of diabetes. Protocol for discontinuation/ continuation of medications robert procedure discussed. All patient questions answered I have spent less than 30 minutes on patient care today. Dr Diaz was available by phone for the evaluation of this patient. The time was used to review the medical records including relevant urine studies and Prescription history (MAPs), review of the available imaging, evaluation and examination of the patient, coordination of care with the medical staff and if applicable referring physicians, as well as creation of the medical record PQRS Narrative: Smoking Status Former smoker Hx Alcohol Use (MH) Yes: SOCIALLY Home Medications: Ambulatory Orders Travoprost [Travatan Z 0.004%] 1 drop LEFT EYE HS 02/25/16 cycloSPORINE 0.05% OPHTH SOLN [Restasis] 1 drop BOTH EYES BID 02/25/16 Famotidine [Pepcid] 40 mg PO QAM 01/13/18 Ipratropium [place] 0.06%Nasal [Atrovent Nasal 0.06%] 1 spray EA NOSTRIL DAILY 01/13/18 Clopidogrel [Plavix] 75 mg PO DAILY 02/09/18 carvediloL [Coreg] 6.25 mg PO BID 07/27/18 lisinopriL [Zestril] 40 mg PO QAM 07/27/18 Ascorbic Acid [Vitamin C] 500 mg PO DAILY 02/14/20 Atorvastatin Calcium [Lipitor] 20 mg PO HS 02/14/20 amLODIPine BESYLATE 5 mg PO QAM 02/14/20 ARIPiprazole 2 mg PO QAM 01/27/22 Celecoxib [CeleBREX] 200 mg PO DAILY 01/27/22 DULoxetine HCL [Cymbalta] 90 mg PO DAILY 01/27/22 Gabapentin [Neurontin] 800 mg PO TID PRN 01/27/22 traZODone HCL [Trazodone HCl] 100 mg PO HS 01/27/22 Controlled Substance Measures - Controlled Substance Measures Is patient prescribed a controlled substance at discharge?: No
== END ==
LOC: PNWHC3 08:54
PROVIDERS: ATTEND Specialist
DX: M47.816 Spondylosis without myelopathy or radiculopathy, lumbar region (principal); M51.36 Other intervertebral disc degeneration, lumbar region; G89.29 Other chronic pain; Z87.891 Personal history of nicotine dependence; Z88.5 Allergy status to narcotic agent; Z91.048 Other nonmedicinal substance allergy status; Z88.6 Allergy status to analgesic agent
CPT/HCPCS: 99211

== ENCOUNTER → 2022-07-03 | Outpatient (CLI) | payer BC ==
[2022-07-03 09:06] VITALS: BP 134/79; PULSE 64; RESP 18; TEMP 97.8
--- NOTE | 2022-07-03 15:49 | P.PAINPG ---
PQRS Measure Charge Sheet Comment: A 66 yr old female with a history of severe and chronic LBP secondary to lumbar DDD and spondylosis with facet arthropathy without myelopathy presents today for evaluation s/p BL facet block of the medial branches L1-L2, L2-L3 #2. Pt states she experienced 100% pain relief x 3 hrs s/p procedure. Pain level is provoked at 6 /10 in intensity, constant, localized in the upper lumbar spine, sharp in character w/o shooting pain. Pain is provoked by standing/ walking for periods of 10 min or more. Pain is alleviated with medications, injections, ice, heat, PT x 4 wks in 2021, chiropractic treatments semi monthly for years w last visit 6 mo ago, massage therapy years ago, home stretching regimen, repositi oning and rest. Interventional pain procedures completed include BL MBB L1-L3 x2, NEIDA L1-L2 x1 Patient is currently on Neurontin, Celebrex, Tylenol Patient denies any side effects of the medication(s), denies excessive drowsiness or sleepiness, denies suicidal ideation and reports that the current pain medication is helping to control the pain and improve activities of daily living. Patient denies any motor or sensory deficits. Patient denies any fever or night sweats, denies any change in the bowel movements or urination. Physical Examination: -Constitutional: Cooperative. Not in acute distress . - Neurologic: Cranial nerve II to XII intact. No focal neurological deficits. - Psychatric: Alert & oriented x 3. Matching mood & appropriate affect. Judgment and insight intact. - Musculoskeletal: Cervical spine: Muscle bulk/ tone/ strength in the bilateral upper extremities normal Vertebral body tenderness to palpation over Spurling test positive Distraction test positive Facet loading test positive TTP Thoracic spine Muscle bulk / tone/ strength in the bilateral paraspinal muscles normal Vertebral body tender to palpation over Facet loading test positive TTP Lumbar spine: Motor bulk/ tone/ strength lower extremities , thigh and legs : 5/5 Deep tendon reflexes : Normal Knee Jerk. Normal Ankle Jerk . Vertebral body tenderness to palpation over Lumbar Facet Loading Test positive TTP over BL L1-L2, L2-L3 facets Straight Leg Raise: positive at 30 degrees right side/ left side Gaenslen's Test positive Sacral spine : Severe tenderness over the Sacroiliac joint: right side / left side Range of motion: Flexion of the lumbar spine <60 degrees Range of motion: Extension of the lumbar spine <20 degrees Gaenslen's Test positive right side / left side Nehemiah test: positive right side / left side Thigh Thrust Test positive right side / left side Sacral Thrust Test positive right side / left side Assessment and plan: Chronic LBP secondary to lumbar DDD, spondylosis with facet arthropathy without myelopathy Recommendation of BL RFA L1-L2, L2-L3. Pt exhibited sufficient and substantial pain relief s/p facet blocks of the medial branches. Risks, benefits of procedure discussed and pt verbalized understanding. Admits to anticoagulant use or medical history of diabetes. Protocol for discontinuation/ continuation of medications robert procedure discussed. All questions answered. I have spent less than 30 minutes on patient care today. Dr Diaz was available by phone for the evaluation of this patient. The time was used to review the medical records including relevant urine studies and Prescription history (MAPs), review of the available imaging, evaluation and examination of the patient, coordination of care with the medical staff and if applicable referring physicians, as well as creation of the medical record PQRS Narrative: Smoking Status Former smoker Hx Alcohol Use (MH) Yes: SOCIALLY Home Medications: Ambulatory Orders Travoprost [Travatan Z 0.004%] 1 drop LEFT EYE HS 02/25/16 cycloSPORINE 0.05% OPHTH SOLN [Restasis] 1 drop BOTH EYES BID 02/25/16 Famotidine [Pepcid] 40 mg PO QAM 01/13/18 Ipratropium [place] 0.06%Nasal [Atrovent Nasal 0.06%] 1 spray EA NOSTRIL DAILY 01/13/18 Clopidogrel [Plavix] 75 mg PO DAILY 02/09/18 carvediloL [Coreg] 6.25 mg PO BID 07/27/18 lisinopriL [Zestril] 40 mg PO QAM 07/27/18 Ascorbic Acid [Vitamin C] 500 mg PO DAILY 02/14/20 Atorvastatin Calcium [Lipitor] 20 mg PO HS 02/14/20 amLODIPine BESYLATE 5 mg PO QAM 02/14/20 ARIPiprazole 2 mg PO QAM 01/27/22 Celecoxib [CeleBREX] 200 mg PO DAILY 01/27/22 DULoxetine HCL [Cymbalta] 90 mg PO DAILY 01/27/22 Gabapentin [Neurontin] 800 mg PO TID PRN 01/27/22 traZODone HCL [Trazodone HCl] 100 mg PO HS 01/27/22 Controlled Substance Measures - Controlled Substance Measures Is patient prescribed a controlled substance at discharge?: No
== END ==
LOC: PNWHC3 08:27
PROVIDERS: ATTEND Specialist
DX: M51.36 Other intervertebral disc degeneration, lumbar region (principal); M47.816 Spondylosis without myelopathy or radiculopathy, lumbar region; G89.29 Other chronic pain; Z87.891 Personal history of nicotine dependence; Z91.048 Other nonmedicinal substance allergy status; Z88.5 Allergy status to narcotic agent
CPT/HCPCS: 99211

== ENCOUNTER 2022-08-08 07:26 | Day surgery (SDC) | payer BC ==
[2022-08-05 10:56] VITALS: BMI 20.5
[~2022-08-08 07:26] MED LIST changes: +LIDOCAINE 1% (10MG/ML) FOR IV START INTRADERMA PRN
[2022-08-08 07:45] VITALS: TEMP 98.2
[2022-08-08] MEDS ORDERED: MIDAZOLAM 2 MG/2 ML VIAL ONE (08:31)
[2022-08-08] MEDS ORDERED: ROPIVACAINE 5 MG/ML 20 ML AMPULE ONE (08:31)
[2022-08-08] MEDS ORDERED: fentaNYL (PF) 50 MCG/ML 2 ML AMP ONE (08:31)
[2022-08-08] MEDS ORDERED: methylPREDNISolone ACETATE 40 MG/ML 1 ML VIAL ONE (08:31)
--- NOTE | 2022-08-08 09:04 | P.PCN ---
Date of Procedure: 08/08/22 Procedure(s) Performed: PREOPERATIVE DIAGNOSIS: 1-Lumbar Spondylosis with Facet Arthropathy without myelopathy. 2- Lumber degenerative disc disease. POSTOPERATIVE DIAGNOSIS: 1- Lumbar Spondylosis with Facet Arthropathy without myelopathy. 2- Lumber degenerative disc disease. PROCEDURES : Bilateral Radiofrequency thermocoagulation, L1 , L2 , and L3 medial branch, with fluoroscopic guidance (fluoroscopy images available in the radiology department) ( to denervate the facet joint at bilateral L1-2 ,and L2-3 levels ). ANESTHESIA: Monitored anesthesia care as per anesthesia department . EBL: Minimal PROCEDURE INDICATION: The patient with low back pain secondary to lumbar facet arthropathy who had more than 50% relief of her pain with previous diagnostic lumbar medial branch block with bupivacaine. PROCEDURE DESCRIPTION / TECHNIQUE: The patient was seen and identified in the preoperative area. Risks, benefits, complications, including but not limited to risk of infection ,bleeding , allergic reactions to the medications and no complete pain releife , and alternatives were discussed with the patient, the patient agreed to proceed with the procedure and signed the consent. IV was started. Vital signs remained stable throughout the procedure. Patient was taken to the OR and time out was completed. The patient was placed in the prone position on the procedure table. The lumber area was prepped and draped in the usual sterile fashion. . Vital signs were closely monitored during the procedure .IV sedation was used during the procedure to decrease patients anxiety. Using AP and then oblique fluoroscopy, the ``eye of the Derek dog corre sponding to the connection between the superior and transverse articular processes of right L1, L2, and L3 were identified, marked, and localized with 1% lidocaine. Subsequently, a [id number] radiofrequency cannula with a 10- mm active tip was advanced guided by fluoroscopy to each of the``eyes of the Derek dog at right L1 , L2, and L3. Each site then underwent sensory testing at 50 Hz and 0 to 1 volt and motor testing at 2.5 Hz and 0 to 3 volt with local stimulation, but no radicular symptoms down the legs. Thereafter each sites underwent radiofrequency thermocoagulation at 80 degrees celsius for 90 seconds after injecting 0.5 ml of PF Ropivacaine 1ml, then after the thermocoagulation done , 1 ml of the block solution containing Depo-Medrol 20 mg and 3 ml of Ropivacaine 0.5% was injected at the right L1 , L2 , and L3, levels after negative aspiration of CSF and blood and with no paresthesias. Cannulas were retracted while injecting lidocaine 1% until the needle is out. The same procedure was repeated at the level of Left L1, L2, and L3 levels. At the end of the procedure, the skin was cleansed and bandages were applied. COMPLICATIONS: No acute complications. DISPOSITION / PLANS: The patient was placed in a supine position and transferred to the recovery area in a stable condition for observation and was discharged from the recovery room after meeting discharge criteria. Home discharge instructions given to the patient by the staff. The patient was reexamined prior to discharge. The patient will schedule a follow up in the clinic in 2-4 weeks.
[2022-08-08] MEDS ORDERED: IV FLUID CONTINUATION 1,000 ML IV ONE (09:09)
[2022-08-08 09:23] VITALS: BP 112/72; PULSE 59; RESP 15
--- NOTE | 2022-08-08 09:51 | FL ---
Intraoperative/procedural fluoroscopic services were provided. Total fluoroscopy time is 33 seconds w ith a total of 9 submitted images to PACS. Please see the operative/procedural note for further detai ls. DAP: 0.0497
== END 2022-08-08 09:37 | disposition home or self-care (01) ==
LOC: ORPAIN 07:26
PROVIDERS: ATTEND Specialist
DX: M51.36 Other intervertebral disc degeneration, lumbar region (principal); M47.816 Spondylosis without myelopathy or radiculopathy, lumbar region; I10 Essential (primary) hypertension; M06.9 Rheumatoid arthritis, unspecified; Z88.5 Allergy status to narcotic agent; Z88.8 Allergy status to other drugs, medicaments and biological substances; Z87.891 Personal history of nicotine dependence; K21.9 Gastro-esophageal reflux disease without esophagitis; Z79.83 Long term (current) use of bisphosphonates; Z79.899 Other long term (current) drug therapy
CPT/HCPCS: 64635; 64636 ×2; J2250; J1030; J3010; J2795

== ENCOUNTER → 2022-09-19 | Outpatient (CLI) | payer BC ==
[2022-09-19 11:49] LABS: African American GFR (CKD) >90 (>60 ml/min/1.73 sqM); Blood Urea Nitrogen 10 mg/dL (7-17); Non-African American GFR(CKD) >90 (>60 ml/min/1.73 sqM)
--- NOTE | 2022-09-19 12:37 | CT ---
EXAMINATION TYPE: CT abdomen w con DATE OF EXAM: 09/19/2022 COMPARISON: 02/03/20 HISTORY: Abdominal pain and nausea CT DLP: 482 mGycm CONTRAST: CT scan of the abdomen is performed with Oral Contrast and with IV Contrast, patient injected with 10 0 mL of Isovue 300. FINDINGS: LUNG BASES-: No visible nodule. No infiltrate. LIVER/GB: No calcified gallstones. No space occupying hepatic lesion. Biliary tree is of normal ca liber. PANCREAS: No inflammation. No distinct mass. SPLEEN: No splenic enlargement. No lesion seen. ADRENALS: No nodule. No thickening. KIDNEYS/BLADDER: No hydronephrosis. No nephrolithiasis. No distinct renal mass. Urinary bladder g rossly unremarkable. BOWEL: Visualized bowel loops are of normal caliber. LYMPH NODES: No greater than 1cm abdominal or pelvic lymph nodes are appreciated. AORTA: No significant abnormality. OSSEOUS STRUCTURES: No significant abnormality is seen. OTHER: No significant additional abnormality is seen. IMPRESSION: 1. No acute intra-abdominal process seen.
== END | disposition home or self-care (01) ==
LOC: RADCTMAIN 10:51
PROVIDERS: ATTEND Family Medicine
DX: R10.9 Unspecified abdominal pain (principal); R11.0 Nausea
CPT/HCPCS: 82565; 84520; 74160; 36415; Q9967

== ENCOUNTER → 2023-05-30 | Outpatient (CLI) | payer BC ==
--- NOTE | 2023-05-30 12:01 | MR ---
EXAMINATION TYPE: MR MRA/MRV head wo con DATE OF EXAM: 05/30/2023 COMPARISON: None HISTORY: Dizziness TECHNIQUE: Time of flight images focusing on the [place] were performed without contrast.. 2-D and 3-D postprocessing imaging is performed. 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 The remainder of the [place] is normal without segmental occlusion, stenosis or arteriovenou s malformation. MRV reveals widely patent cerebral veins and dural sinuses without filling defect or occlusion. IMPRESSION: 1. 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 2. Normal MRV of the brain.
== END | disposition home or self-care (01) ==
LOC: RADMRIMAIN 10:26
PROVIDERS: ATTEND Specialist
DX: I67.1 Cerebral aneurysm, nonruptured (principal)
CPT/HCPCS: 70544

== ENCOUNTER → 2024-01-04 | Outpatient (CLI) | payer BC ==
[2024-01-04 10:54] LABS: Ionized Calcium 5.6 mg/dL (4.5-5.3)
[2024-01-04 15:46] LABS: T4, Free (Free Thyroxine) 1.31 ng/dL (0.80-1.80)
== END | disposition home or self-care (01) ==
LOC: LABWHC1 09:52
PROVIDERS: ATTEND Family Medicine
DX: E27.49 Other adrenocortical insufficiency (principal); E55.9 Vitamin D deficiency, unspecified; R53.83 Other fatigue
CPT/HCPCS: 36415; 82306; 82330; 82533; 82626; 84439; 84481